=== PATIENT | male | born 1950 | race American Indian/Alaskan Native ===

== ENCOUNTER 2019-11-20 11:06 | Inpatient (IN) | payer MEDICARE ==
[2019-11-20] MEDS: traZODone 50 MG TAB PO SCH (22:35)
[2019-11-21 08:03] LABS: Basophils # (Auto) 0.1 K/mm3 (0.0-0.1); Basophils % (Auto) 1.1 % (0.0-1.8); Eosinophils # (Auto) 0.1 K/mm3 (0.0-0.4); Eosinophils % (Auto) 1.6 % (0.0-4.3); Hematocrit 33.6 % (35.5-45.6); Lymphocytes # (Auto) 1.1 K/mm3 (1.2-5.4); Lymphocytes % (Auto) 15.2 % (13.4-35.0); Mean Corpuscular HGB Conc 33 % (32-34); Mean Corpuscular Volume 84 fl (84-94); Monocytes # (Auto) 0.9 K/mm3 (0.0-0.8); Monocytes % (Auto) 12.6 % (0.0-7.3); Platelet Count 221 K/mm3 (140-440); Red Blood Count 4.01 M/mm3 (3.65-5.03); Red Cell Distribution Width 18.3 % (13.2-15.2)
[2019-11-21 08:12] LABS: Alanine Aminotransferase 15 units/L (7-56); Albumin 3.7 g/dL (3.9-5); BUN/Creatinine Ratio 32; Blood Urea Nitrogen 32 mg/dL (9-20); Calcium 9.4 mg/dL (8.4-10.2); Chol/HDL Ratio 2.38 %; HDL Cholesterol 55 mg/dL (40-59); Hemolysis Index 6; LDL Cholesterol,Direct 69 mg/dL (50-130)
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
[2019-11-21] MEDS ORDERED: ACETAMINOPHEN 650 MG PO PRN (10:08)
[2019-11-21] MEDS ORDERED: ARTIFICIAL TEARS OU SCH (10:15)
[2019-11-21] MEDS ORDERED: NON-FORMULARY EACH (Losartan 100 MG) PO SCH (10:15)
[2019-11-21] MEDS ORDERED: GUAIFENESIN 600 MG PO SCH (10:15)
[2019-11-21] MEDS ORDERED: NON-FORMULARY EACH (Apixaban 5 MG) PO SCH (10:15)
[2019-11-21] MEDS ORDERED: NON-FORMULARY EACH (Pantoprazole 40 MG) PO SCH (10:15)
[2019-11-21] MEDS: ACETAMINOPHEN 325 MG TAB PO PRN ×2 (10:59→21:50)
[2019-11-21] MEDS: MAGNESIUM OXIDE 400 MG TAB PO SCH (10:59)
[2019-11-21] MEDS: LOSARTAN 50 MG TAB PO SCH (11:00)
[2019-11-21] MEDS: NICOTINE 21 MG/24 HR PATCH TD SCH (12:31)
[2019-11-21] MEDS: FUROSEMIDE 20 MG TAB PO SCH ×2 (12:31→21:21)
[2019-11-21] MEDS: ASPIRIN EC 81 MG TAB PO SCH (12:31)
[2019-11-21] MEDS: HYPROMELLOSE 0.5% OPHTH SOLN 15 ML OU SCH ×4 (13:00→22:40)
--- NOTE | 2019-11-21 13:37 | Consultation ---
History of Present Illness - Reason for Consult Consult date: 11/21/19 Medical consult Requesting physician: IMANI FRANKLIN - History of Present Illness I have seen and examined the patient this morning in activity room Very pleasant 69-year-old male patient with significant past medical history of hypertension congestive heart failure atrial fibrillation COPD, GERD and spondylosis of the back with chronic back pain, anxiety and severe depression danger to self, was admitted to inpatient psych facility for further evaluation and management. Hospitalist service was requested for medical consult. Patient has multiple medical problems claims compliance with his medications The time of my evaluation patient complains of some depression, denies suicidal ideation or thoughts Denies hallucinations or delusions Patient denies chest pain or shortness of breath No other complaints Past History Past Medical History: atrial fib, heart failure, hypertension, hyperlipidemia Past Surgical History: No surgical history Social history: lives with family, smoking. denies: alcohol abuse, prescription drug abuse Family history: no significant family history Medications and Allergies Allergies Allergy/AdvReac Type Severity Reaction Status Date / Time lactose Allergy Unknown Verified 11/21/19 03:25 peanut Allergy Unknown Verified 11/20/19 14:04 tramadol Allergy Unknown Verified 11/21/19 03:25 Home Medications Medication Instructions Recorded Confirmed Last Taken Type Acetaminophen TAB 650 mg PO Q8H PRN 11/21/19 11/21/19 Unknown History Apixaban 5 mg PO BID 11/21/19 11/21/19 Unknown History Artificial Tears Drops 1%/0.3% 1 drop OU Q4H 11/21/19 11/21/19 Unknown History Aspirin [Adult Aspirin] 81 mg PO DAILY 11/21/19 11/21/19 Unknown History AtorvaSTATin 10 mg PO DAILY 11/21/19 11/21/19 Unknown History Budesonide-Formoterol 160-4.5 2 puff INHALATION BID 11/21/19 11/21/19 Unknown History Calcium Carbonate [Calcium 500 mg PO DAILY 11/21/19 11/21/19 Unknown History Carbonate 500MG TAB] Fluticasone/Vilanterol 1 puff INHALATION DAILY 11/21/19 11/21/19 Unknown History Furosemide [Lasix TAB] 20 mg PO BID 11/21/19 11/21/19 Unknown History Losartan 100 mg PO DAILY 11/21/19 11/21/19 Unknown History Magnesium Oxide 400 mg PO DAILY 11/21/19 11/21/19 Unknown History Pantoprazole 40 mg PO BID 11/21/19 11/21/19 Unknown History Sennosides [Senna] 8.6 mg PO BID 11/21/19 11/21/19 Unknown History Spironolactone [Aldactone] 50 mg PO QDAY 11/21/19 11/21/19 Unknown History guaiFENesin 600 mg PO Q12H 11/21/19 11/21/19 Unknown History Active Meds: Active Medications Acetaminophen (Tylenol) 650 mg PO Q8H PRN PRN Reason: Pain , Severe (7-10) Last Admin: 11/21/19 10:59 Dose: 650 mg Documented by: Apixaban (Eliquis) 5 mg PO Q12HR [facility] Artificial Tears (Isopto Tears 0.5%) 1 drops OU Q4H [facility] Aspirin (Halfprin Ec) 81 mg PO DAILY [facility] Last Admin: 11/21/19 12:31 Dose: 81 mg Documented by: Atorvastatin Calcium (Atorvastatin) 10 mg PO DAILY [facility] Last Admin: 11/21/19 12:31 Dose: 10 mg Documented by: Calcium Carbonate/Glycine (Oscal) 1,250 mg PO DAILY [facility] Furosemide (Lasix) 20 mg PO BID [facility] Last Admin: 11/21/19 12:31 Dose: 20 mg Documented by: Guaifenesin (Mucinex Er) 600 mg PO BID [facility] Losartan Potassium (Cozaar) 100 mg PO QDAY [facility] Magnesium Oxide (Mag-Ox) 400 mg PO QDAY [facility] Last Admin: 11/21/19 10:59 Dose: 400 mg Documented by: Melatonin (Melatonin) 5 mg PO QHS PRN PRN Reason: Sleep Miscellaneous Medication (Budesonide-Formoterol 160-4.5) 2 puff INHALATION BID [facility] Miscellaneous Medication (Fluticasone/Vilanterol) 1 puff INHALATION DAILY [facility] Nicotine (Habitrol) 21 mg TD QDAY [facility] Last Admin: 11/21/19 12:31 Dose: 21 mg Documented by: Pantoprazole Sodium (Protonix) 40 mg PO BID [facility] Risperidone (Risperdal) 0.25 mg PO BID [facility] Senna (Senokot) 8.6 mg PO BID [facility] Spironolactone (Aldactone) 50 mg PO QDAY [facility] Trazodone HCl (Desyrel) 50 mg PO QHS [facility] Last Admin: 11/20/19 22:35 Dose: Not Given Documented by: Review of Systems Constitutional: no weight loss, no weight gain Ears, nose, mouth and throat: no nasal congestion, no nasal discharge Cardiovascular: no chest pain, no orthopnea, no palpitations Respiratory: no cough, no shortness of breath Gastrointestinal: no abdominal pain, no nausea, no vomiting Genitourinary Male: no dysuria, no hematuria Musculoskeletal: no myalgias, no arthritis Integumentary: no rash, no lesions Neurological: no seizures, no syncope Psychiatric: suicidal ideation, depression, no anxiety Endocrine: no cold intolerance, no heat intolerance, no polydipsia, no polyuria Hematologic/Lymphatic: no easy bruising, no easy bleeding Allergic/Immunologic: no urticaria, no allergic rhinitis Exam - Constitutional Vitals: Temp Pulse Resp BP Pulse Ox 98.1 F 96 H 18 94/61 100 11/21/19 08:08 11/21/19 08:08 11/21/19 08:08 11/21/19 08:08 11/21/19 08:08 General appearance: Present: no acute distress, well-nourished - EENT Eyes: Present: PERRL, EOM intact - Neck Neck: Present: supple, normal ROM - Respiratory Respiratory effort: normal Respiratory: bilateral: diminished, negative: rales, rhonchi, wheezing - Cardiovascular Rhythm: regular Heart Sounds: Present: S1 & S2 - Extremities Extremities: no ischemia, No edema - Abdominal General gastrointestinal: Present: soft, non-tender, non-distended, normal bowel sounds - Integumentary Integumentary: Present: clear, warm - Musculoskeletal Musculoskeletal: strength equal bilaterally - Psychiatric Psychiatric: appropriate mood/affect, cooperative - Neurologic Neurologic: moves all extremities Results - Labs CBC & Chem 7: 11/21/19 07:10 11/21/19 07:10 Labs: Abnormal lab results 11/21/19 11/21/19 11/21/19 Range/Units 07:10 07:10 07:10 Hgb 11.0 L (11.8-15.2) gm/dl Hct 33.6 L (35.5-45.6) % MCH 27 L (28-32) pg RDW 18.3 H (13.2-15.2) % [place] % (Auto) 12.6 H (0.0-7.3) % Lymph # 1.1 L (1.2-5.4) K/mm3 [place] # 0.9 H (0.0-0.8) K/mm3 Sodium 136 L (137-145) mmol/L Chloride 97.2 L (98-107) mmol/L BUN 32 H (9-20) mg/dL Alkaline Phosphatase 138 H (35-129) units/L Albumin 3.7 L (3.9-5) g/dL TSH 8.400 H (0.270-4.200) mlU/mL Assessment and Plan --Hypertension; moderate control Continue current antihypertensives and PRN medications --History of atrial fibrillation; Rate controlled, continue his home medication --Chronic anticoagulation; with Eliquis Closely monitor --History of congestive heart failure[unknown ejection fraction] Continue anti-failure medications, --Dyslipidemia; statin --GERD; continue Protonix --Hypothyroidism; Check thyroid panel, start low-dose Synthroid --DVT prophylaxis; patient on Eliquis --Major depressive disorder; Management per psych Closely monitor and adjust the management Thank you for this consultation We will follow the patient along with you as needed Plan of care reviewed with the patient and his nurse
[2019-11-21] MEDS: guaiFENesin ER 600 MG TAB PO SCH ×2 (16:23→21:22)
[2019-11-21] MEDS: CALCIUM CARBONATE 1250 MG TAB PO SCH (16:23)
[2019-11-21] MEDS: APIXABAN 5 MG TAB PO SCH ×2 (16:24→21:22)
[2019-11-21] MEDS: SPIRONOLACTONE 50 MG TAB PO SCH (16:24)
[2019-11-21] MEDS: SENNOSIDES 8.6 MG TAB PO SCH (21:21)
[2019-11-21] MEDS: traZODone 50 MG TAB PO SCH (21:21)
[2019-11-21] MEDS: risperiDONE 0.25 MG TAB PO SCH (21:21)
[2019-11-21] MEDS: PANTOPRAZOLE 40 MG TAB PO SCH (21:21)
[2019-11-21] MEDS ORDERED: NON-FORMULARY EACH (Budesonide-Formoterol 160-4.5 2 PUFF) INHALATION SCH (22:00)
[2019-11-21] MEDS ORDERED: ARFORMOTEROL 15 MCG/2 ML NEBU IH ONE (22:00)
[2019-11-21] MEDS ORDERED: SENNOSIDES 8.6 MG PO SCH (22:00)
[2019-11-22] MEDS: HYPROMELLOSE 0.5% OPHTH SOLN 15 ML OU SCH ×6 (03:04→22:39)
[2019-11-22] MEDS: LEVOTHYROXINE 50 MCG TAB PO SCH (05:28)
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
[2019-11-22] MEDS ORDERED: VILANTEROL INHALATION SCH (10:00)
[2019-11-22] MEDS ORDERED: FLUTICASONE INHALATION SCH (10:00)
[2019-11-22] MEDS ORDERED: MAGNESIUM OXIDE 400 MG PO SCH (10:00)
[2019-11-22] MEDS: LOSARTAN 50 MG TAB PO SCH (10:47)
[2019-11-22] MEDS: guaiFENesin ER 600 MG TAB PO SCH ×2 (10:47→21:24)
[2019-11-22] MEDS: ASPIRIN EC 81 MG TAB PO SCH (10:47)
[2019-11-22] MEDS: NICOTINE 21 MG/24 HR PATCH TD SCH ×2 (10:48→10:55)
[2019-11-22] MEDS: FUROSEMIDE 20 MG TAB PO SCH ×2 (10:49→21:25)
[2019-11-22] MEDS: APIXABAN 5 MG TAB PO SCH ×2 (10:49→21:24)
[2019-11-22] MEDS: MAGNESIUM OXIDE 400 MG TAB PO SCH (10:49)
[2019-11-22] MEDS: CALCIUM CARBONATE 1250 MG TAB PO SCH (10:49)
[2019-11-22] MEDS: SPIRONOLACTONE 50 MG TAB PO SCH (10:49)
[2019-11-22] MEDS: SENNOSIDES 8.6 MG TAB PO SCH ×2 (10:49→21:24)
[2019-11-22] MEDS: risperiDONE 0.25 MG TAB PO SCH ×2 (10:50→21:25)
[2019-11-22] MEDS: PANTOPRAZOLE 40 MG TAB PO SCH ×2 (11:05→21:25)
[2019-11-22] MEDS: SERTRALINE 25 MG TAB PO SCH (11:05)
[2019-11-22] MEDS: ACETAMINOPHEN 325 MG TAB PO PRN ×2 (11:39→21:34)
[2019-11-22] MEDS: traZODone 50 MG TAB PO SCH (21:24)
[2019-11-23] MEDS: ACETAMINOPHEN 325 MG TAB PO PRN (03:06)
[2019-11-23] MEDS: HYPROMELLOSE 0.5% OPHTH SOLN 15 ML OU SCH ×6 (03:06→23:40)
[2019-11-23] MEDS: BUDESONIDE 0.5 MG/2 ML NEBU IH SCH ×6 (04:25→22:51)
[2019-11-23] MEDS: ARFORMOTEROL 15 MCG/2 ML NEBU IH SCH ×6 (04:25→22:52)
[2019-11-23] MEDS: LEVOTHYROXINE 50 MCG TAB PO SCH (05:41)
--- NOTE | 2019-11-23 07:27 | Progress Note ---
Subjective Date of service: 11/23/19 Principal diagnosis: Major Depressive Disorder Subjective Comment: Psych Nurse: Pt remains alert and oriented to person place and situation; complained of pain earlier in the shift and administered a dose of Tylenol 650mg PO only to later confirm the effectiveness of the pain pill as the pain threshold dropped from 5 to 0. Pt remain ambulatory with steady gait and was non-compliant with medications. Pt refused all his day time medications saying "I cannot take 15 pills". Pt participated actively in all group activities and denied any suicide or homicidal thoughts as well as denied any intent to hurt self or others. Pt will continued to be monitored for safety every 15 minutes. PSYCH PROGRESS HPI Patient seen this a.m. reports is been doing pretty good this morning compared to yesterday that somehow he just felt worried about something but was not specific. Patient reports sleeping well, denies any suicidal or homicidal ideation states that he loves living. Denies any auditory visual hallucinations, patient reports noncompliance to medications states because the medication was too much that he normally only takes 3 medication but now feels like he is taking 15 pills. Reason for continuing inpatient hospitalization: This patient was admitted due to suicidal ideation with plan asking for gun because he wanted to shoot h imself, patient is denying suicidal ideation but patient has been noncompliant with taking oral medications, and concern patient hiding symptoms for quick discharge. Will make meds adjustment and recommend continued observation of patients mood and affect. REVIEW OF SYSTEMS Constitutional: Negative for weight loss ENT: Negative for stridor Respiratory: Negative for cough or hemoptysis All other systems reviewed and are negative MENTAL STATUS EXAMINATION General Appearance and Behavior: Age appropriate, fair hygiene, wearing appropriate clothes, good eye contact, cooperative polite with questioning. Cooperation: Participating/engaged Psychomotor Behavior: unremarkable and within normal limits Mood: feel good Affect and affective range: incongruent with mood Thought Process: Fluent/Logical Thought Content: Within reality Speech: Normal volume, Regular rate and rhythm Intellectual Functioning: Average Suicidal Ideation: denies Homicidal Ideation: Denies HI Impulse Control: Unimpaired Insight and Judgment: Normal insight and judgment Memory: Normal Attention: Normal Orientation: Alert, oriented, anxious. Assessment and Plan - Psychiatric problem (1) MDD (major depressive disorder), recurrent episode, severe Current Visit: Yes Status: Acute Check t4 and T3 levels, TSH very high Patient complained about too much medications: Medication reviewed with prescriptions home meds, and was able to discontinue 5 medications. Patient will be admitted for inpatient psychiatric evaluation, medication adjustment and close monitoring The patient's behavior, mood, sleep and appetite will be closely monitored. Patient will be enrolled in individual and group therapeutic sessions and encouraged to attend. Patient will be provided with a safe and structured environment. Patient's physical health needs will be addressed by the Hospitalist. Hospitalist Consulted Labs including CBC, CMP, Lipid profile and Hemoglobin A1C ordered Social Assessment will be completed and the Liquor Blender will work with patient and family to ensure a suitable and safe disposition Medication adjustment will be made as clinically indicated Usual Wellness Nondenominational/Preservation: - Start Trazodone 50 mg po QHS & 50 mg po QHS PRN between 10 PM & 2 AM for insomnia - Start Melatonin 5 mg po QHS to promote circadian rhythm - Start [place]-3 for brain health, reduce impulsivity, and as adjunctive treatment for mood disorder, continue upon discharge given overall benefits. - Start B1 prophylaxis with 200 mg po for 5 days The patient agreed on the treatment plan, understood the risk, benefit, alternative treatment, potential consequence of no treatment, and gave informed consent. Initial Certification This is an acknowledgement statement that Demetrio Burnett is a 56 year old F who requires inpatient psychiatric admission for treatment which could reasonably be expected to improve the patient's condition for Estimated period of time patient will need to remain in the hospital: [5] Medications and Allergies Allergies Allergy/AdvReac Type Severity Reaction Status Date / Time lactose Allergy Unknown Verified 11/21/19 03:25 peanut Allergy Unknown Verified 11/20/19 14:04 tramadol Allergy Unknown Verified 11/21/19 03:25 Home Medications Medication Instructions Recorded Confirmed Last Taken Type Acetaminophen TAB 650 mg PO Q8H PRN 11/21/19 11/21/19 Unknown History Apixaban 5 mg PO BID 11/21/19 11/21/19 Unknown History Artificial Tears Drops 1%/0.3% 1 drop OU Q4H 11/21/19 11/21/19 Unknown History Aspirin [Adult Aspirin] 81 mg PO DAILY 11/21/19 11/21/19 Unknown History AtorvaSTATin 10 mg PO DAILY 11/21/19 11/21/19 Unknown History Budesonide-Formoterol 160-4.5 2 puff INHALATION BID 11/21/19 11/21/19 Unknown History Calcium Carbonate [Calcium 500 mg PO DAILY 11/21/19 11/21/19 Unknown History Carbonate 500MG TAB] Fluticasone/Vilanterol 1 puff INHALATION DAILY 11/21/19 11/21/19 Unknown History Furosemide [Lasix TAB] 20 mg PO BID 11/21/19 11/21/19 Unknown History Losartan 100 mg PO DAILY 11/21/19 11/21/19 Unknown History Magnesium Oxide 400 mg PO DAILY 11/21/19 11/21/19 Unknown History Pantoprazole 40 mg PO BID 11/21/19 11/21/19 Unknown History Sennosides [Senna] 8.6 mg PO BID 11/21/19 11/21/19 Unknown History Spironolactone [Aldactone] 50 mg PO QDAY 11/21/19 11/21/19 Unknown History guaiFENesin 600 mg PO Q12H 11/21/19 11/21/19 Unknown History Active Meds: Active Medications Acetaminophen (Tylenol) 650 mg PO Q8H PRN PRN Reason: Pain , Severe (7-10) Last Admin: 11/23/19 03:06 Dose: 650 mg Documented by: Apixaban (Eliquis) 5 mg PO Q12HR [facility] Last Admin: 11/22/19 21:24 Dose: 5 mg Documented by: Arformoterol Tartrate (Brovana Nebu) 15 mcg IH Q12HRT [facility] Last Admin: 11/23/19 04:25 Dose: Not Given Documented by: Artificial Tears (Isopto Tears 0.5%) 1 drops OU Q4H [facility] Last Admin: 11/23/19 06:27 Dose: 1 drops Documented by: Aspirin (Halfprin Ec) 81 mg PO DAILY [facility] Last Admin: 11/22/19 10:47 Dose: Not Given Documented by: Atorvastatin Calcium (Atorvastatin) 10 mg PO DAILY [facility] Last Admin: 11/22/19 10:49 Dose: Not Given Documented by: Budesonide (Pulmicort) 1 mg IH Q12HRT [facility] Last Admin: 11/23/19 04:25 Dose: Not Given Documented by: Calcium Carbonate/Glycine (Oscal) 1,250 mg PO DAILY [facility] Last Admin: 11/22/19 10:49 Dose: 1,250 mg Documented by: Furosemide (Lasix) 20 mg PO BID [facility] Last Admin: 11/22/19 21:25 Dose: 20 mg Documented by: Guaifenesin (Mucinex Er) 600 mg PO BID [facility] Last Admin: 11/22/19 21:24 Dose: 600 mg Documented by: Levothyroxine Sodium (Synthroid) 50 mcg PO DAILY@0600 [facility] Last Admin: 11/23/19 05:41 Dose: 50 mcg Documented by: Losartan Potassium (Cozaar) 100 mg PO QDAY [facility] Last Admin: 11/22/19 10:47 Dose: Not Given Documented by: Magnesium Oxide (Mag-Ox) 400 mg PO QDAY [facility] Last Admin: 11/22/19 10:49 Dose: Not Given Documented by: Melatonin (Melatonin) 5 mg PO QHS PRN PRN Reason: Sleep Nicotine (Habitrol) 21 mg TD QDAY [facility] Last Admin: 11/22/19 10:55 Dose: 21 mg Documented by: Pantoprazole Sodium (Protonix) 40 mg PO BID [facility] Last Admin: 11/22/19 21:25 Dose: 40 mg Documented by: Risperidone (Risperdal) 0.25 mg PO BID [facility] Last Admin: 11/22/19 21:25 Dose: 0.25 mg Documented by: Senna (Senokot) 8.6 mg PO BID [facility] Last Admin: 11/22/19 21:24 Dose: 8.6 mg Documented by: Sertraline HCl (Zoloft) 25 mg PO QDAY [facility] Last Admin: 11/22/19 11:05 Dose: Not Given Documented by: Spironolactone (Aldactone) 50 mg PO QDAY [facility] Last Admin: 11/22/19 10:49 Dose: Not Given Documented by: Trazodone HCl (Desyrel) 50 mg PO QHS [facility] Last Admin: 11/22/19 21:24 Dose: 50 mg Documented by: Results - Results Labs/Vitals: Laboratory Last Values WBC 7.0 K/mm3 (4.5-11.0) 11/21/19 07:10 RBC 4.01 M/mm3 (3.65-5.03) 11/21/19 07:10 Hgb 11.0 gm/dl (11.8-15.2) L 11/21/19 07:10 Hct 33.6 % (35.5-45.6) L 11/21/19 07:10 MCV 84 fl (84-94) 11/21/19 07:10 MCH 27 pg (28-32) L 11/21/19 07:10 MCHC 33 % (32-34) 11/21/19 07:10 RDW 18.3 % (13.2-15.2) H 11/21/19 07:10 Plt Count 221 K/mm3 (140-440) 11/21/19 07:10 Lymph % (Auto) 15.2 % (13.4-35.0) 11/21/19 07:10 [place] % (Auto) 12.6 % (0.0-7.3) H 11/21/19 07:10 Eos % (Auto) 1.6 % (0.0-4.3) 11/21/19 07:10 Baso % (Auto) 1.1 % (0.0-1.8) 11/21/19 07:10 Lymph # 1.1 K/mm3 (1.2-5.4) L 11/21/19 07:10 [place] # 0.9 K/mm3 (0.0-0.8) H 11/21/19 07:10 Eos # 0.1 K/mm3 (0.0-0.4) 11/21/19 07:10 Baso # 0.1 K/mm3 (0.0-0.1) 11/21/19 07:10 Seg Neutrophils % 69.5 % (40.0-70.0) 11/21/19 07:10 Seg Neutrophils # 4.9 K/mm3 (1.8-7.7) 11/21/19 07:10 Sodium 136 mmol/L (137-145) L 11/21/19 07:10 Potassium 4.9 mmol/L (3.6-5.0) 11/21/19 07:10 Chloride 97.2 mmol/L (98-107) L 11/21/19 07:10 Carbon Dioxide 29 mmol/L (22-30) 11/21/19 07:10 Anion Gap 15 mmol/L 11/21/19 07:10 BUN 32 mg/dL (9-20) H 11/21/19 07:10 Creatinine 1.0 mg/dL (0.8-1.5) 11/21/19 07:10 Estimated GFR > 60 ml/min 11/21/19 07:10 BUN/Creatinine Ratio 32 % 11/21/19 07:10 Glucose 87 mg/dL (75-100) 11/21/19 07:10 POC Glucose 88 (70-105) 11/21/19 06:34 Hemoglobin A1c 4.7 % (4-6) 11/21/19 07:10 Calcium 9.4 mg/dL (8.4-10.2) 11/21/19 07:10 Total Bilirubin 0.40 mg/dL (0.1-1.2) 11/21/19 07:10 AST 25 units/L (5-40) 11/21/19 07:10 ALT 15 units/L (7-56) 11/21/19 07:10 Alkaline Phosphatase 138 units/L (35-129) H 11/21/19 07:10 Total Protein 6.9 g/dL (6.3-8.2) 11/21/19 07:10 Albumin 3.7 g/dL (3.9-5) L 11/21/19 07:10 Albumin/Globulin Ratio 1.2 % 11/21/19 07:10 Triglycerides 108 mg/dL (2-149) 11/21/19 07:10 Cholesterol 131 mg/dL (50-199) 11/21/19 07:10 LDL Cholesterol Direct 69 mg/dL (50-130) 11/21/19 07:10 HDL Cholesterol 55 mg/dL (40-59) 11/21/19 07:10 Cholesterol/HDL Ratio 2.38 % 11/21/19 07:10 TSH 8.400 mlU/mL (0.270-4.200) H 11/21/19 07:10 Free T4 0.99 ng/dL (0.76-1.46) 11/21/19 07:10 Last Vital Signs Temp 98.0 F 11/22/19 22:00 Pulse 68 11/22/19 22:00 Resp 18 11/22/19 22:00 BP 109/65 11/22/19 22:00 Pulse Ox 100 11/22/19 22:00
[2019-11-23] MEDS: SPIRONOLACTONE 50 MG TAB PO SCH (10:06)
[2019-11-23] MEDS: LOSARTAN 50 MG TAB PO SCH (10:06)
[2019-11-23] MEDS: APIXABAN 5 MG TAB PO SCH ×2 (10:06→22:20)
[2019-11-23] MEDS: FUROSEMIDE 20 MG TAB PO SCH ×2 (10:07→22:21)
[2019-11-23] MEDS: ASPIRIN EC 81 MG TAB PO SCH (10:11)
[2019-11-23] MEDS: SERTRALINE 25 MG TAB PO SCH (10:11)
[2019-11-23] MEDS: NICOTINE 21 MG/24 HR PATCH TD SCH (10:18)
[2019-11-23] MEDS: risperiDONE 0.25 MG TAB PO SCH ×2 (11:26→22:21)
[2019-11-24] MEDS: ACETAMINOPHEN 325 MG TAB PO PRN ×3 (01:36→22:12)
[2019-11-24] MEDS: MELATONIN 5 MG TAB PO PRN (01:37)
[2019-11-24] MEDS: HYPROMELLOSE 0.5% OPHTH SOLN 15 ML OU SCH ×6 (03:00→23:20)
[2019-11-24] MEDS: LEVOTHYROXINE 50 MCG TAB PO SCH (05:35)
--- NOTE | 2019-11-24 08:57 | Progress Note ---
Subjective Date of service: 11/24/19 Principal diagnosis: Major Depressive Disorder Subjective Comment: The patient's medical record was reviewed and the patient's progress was discussed with the nursing staff. The patient noted with restless night. He slept 4.5 hours. Delusional thoughts observed as the patient reports this a.m that he was stunned with taser tonight. The patient is non-compliant with medication. During my interview with the patient, he is in the dayroom. He is a/o x 3. The patient appears tired. He has his head lying down on the table. The patient says his mood is "okay." He says, "I'm just tired." The patient says, "I slept pretty good once I finally got to sleep." He denies SI/HI or hallucinations of any kind. Reason for continued inpatient treatment: The patient is improving, but shows signs of underlying depression. The patient also has some periods of delusions. He also has disturbed sleep pattern. REVIEW OF SYSTEMS Constitutional: Negative for weight loss ENT: Negative for stridor Respiratory: Negative for cough or hemoptysis All other systems reviewed and are negative MENTAL STATUS EXAMINATION General Appearance: Dressed appropriately. Fair eye contact Behavior: Calm and cooperative Speech: Normal rate and pace Mood: "okay" Affect: Congruent with stated mood Thought Process: Goal directed Thought Content Suicidal Ideation: Denies Homicidal Ideation: Denies Hallucinations: Denies Delusions: None elicited Insight/Judgment: Limited Memory/Cognition: Limited Assessment and Plan Major Depressive Disorder Treatment Plan Patient will be admitted for inpatient psychiatric evaluation, medication adjustment and close monitoring The patient's behavior, mood, sleep and appetite will be closely monitored. Patient will be enrolled in individual and group therapeutic sessions and encouraged to attend. Patient will be provided with a safe and structured environment. Patient's physical health needs will be addressed by the Hospitalist. Hospitalist Consulted Labs including CBC, CMP, Lipid profile and Hemoglobin A1C ordered Social Assessment will be completed and the Interventional Nurse will work with patient and family to ensure a suitable and safe disposition Medication adjustment will be made as clinically indicated Usual Wellness Buddhism/Preservation: - Increased Risperidone 1mg po po BID The patient agreed on the treatment plan, understood the risk, benefit, alternative treatment, potential consequence of no treatment, and gave informed consent. Estimated period of time patient will need to remain in the hospital: [4] Outpatient treatment upon discharge Medications and Allergies Allergies Allergy/AdvReac Type Severity Reaction Status Date / Time lactose Allergy Unknown Verified 11/21/19 03:25 peanut Allergy Unknown Verified 11/20/19 14:04 tramadol Allergy Unknown Verified 11/21/19 03:25 Home Medications Medication Instructions Recorded Confirmed Last Taken Type Acetaminophen TAB 650 mg PO Q8H PRN 11/21/19 11/21/19 Unknown History Apixaban 5 mg PO BID 11/21/19 11/21/19 Unknown History Artificial Tears Drops 1%/0.3% 1 drop OU Q4H 11/21/19 11/21/19 Unknown History Aspirin [Adult Aspirin] 81 mg PO DAILY 11/21/19 11/21/19 Unknown History AtorvaSTATin 10 mg PO DAILY 11/21/19 11/21/19 Unknown History Budesonide-Formoterol 160-4.5 2 puff INHALATION BID 11/21/19 11/21/19 Unknown History Calcium Carbonate [Calcium 500 mg PO DAILY 11/21/19 11/21/19 Unknown History Carbonate 500MG TAB] Fluticasone/Vilanterol 1 puff INHALATION DAILY 11/21/19 11/21/19 Unknown History Furosemide [Lasix TAB] 20 mg PO BID 11/21/19 11/21/19 Unknown History Losartan 100 mg PO DAILY 11/21/19 11/21/19 Unknown History Magnesium Oxide 400 mg PO DAILY 11/21/19 11/21/19 Unknown History Pantoprazole 40 mg PO BID 11/21/19 11/21/19 Unknown History Sennosides [Senna] 8.6 mg PO BID 11/21/19 11/21/19 Unknown History Spironolactone [Aldactone] 50 mg PO QDAY 11/21/19 11/21/19 Unknown History guaiFENesin 600 mg PO Q12H 11/21/19 11/21/19 Unknown History Active Meds: Active Medications Acetaminophen (Tylenol) 650 mg PO Q8H PRN PRN Reason: Pain , Severe (7-10) Last Admin: 11/24/19 01:36 Dose: 650 mg Documented by: Apixaban (Eliquis) 5 mg PO Q12HR [facility] Last Admin: 11/23/19 22:20 Dose: Not Given Documented by: Arformoterol Tartrate (Brovana Nebu) 15 mcg IH Q12HRT [facility] Last Admin: 11/23/19 22:52 Dose: 15 mcg Documented by: Artificial Tears (Isopto Tears 0.5%) 1 drops OU Q4H [facility] Last Admin: 11/24/19 07:18 Dose: 1 drops Documented by: Aspirin (Halfprin Ec) 81 mg PO DAILY [facility] Last Admin: 11/23/19 10:11 Dose: 81 mg Documented by: Atorvastatin Calcium (Atorvastatin) 10 mg PO DAILY [facility] Last Admin: 11/23/19 10:05 Dose: 10 mg Documented by: Budesonide (Pulmicort) 0.5 mg IH Q12HRT [facility] Furosemide (Lasix) 20 mg PO BID [facility] Last Admin: 11/23/19 22:21 Dose: Not Given Documented by: Levothyroxine Sodium (Synthroid) 50 mcg PO DAILY@0600 [facility] Last Admin: 11/24/19 05:35 Dose: 50 mcg Documented by: Losartan Potassium (Cozaar) 100 mg PO QDAY [facility] Last Admin: 11/23/19 10:06 Dose: 100 mg Documented by: Melatonin (Melatonin) 5 mg PO QHS PRN PRN Reason: Sleep Last Admin: 11/24/19 01:37 Dose: 5 mg Documented by: Nicotine (Habitrol) 21 mg TD QDAY [facility] Last Admin: 11/23/19 10:18 Dose: 21 mg Documented by: Risperidone (Risperdal) 0.5 mg PO BID [facility] Last Admin: 11/23/19 22:21 Dose: Not Given Documented by: Sertraline HCl (Zoloft) 25 mg PO QDAY [facility] Last Admin: 11/23/19 10:11 Dose: 25 mg Documented by: Spironolactone (Aldactone) 50 mg PO QDAY [facility] Last Admin: 11/23/19 10:06 Dose: 50 mg Documented by: Results - Results Labs/Vitals: Laboratory Last Values WBC 7.0 K/mm3 (4.5-11.0) 11/21/19 07:10 RBC 4.01 M/mm3 (3.65-5.03) 11/21/19 07:10 Hgb 11.0 gm/dl (11.8-15.2) L 11/21/19 07:10 Hct 33.6 % (35.5-45.6) L 11/21/19 07:10 MCV 84 fl (84-94) 11/21/19 07:10 MCH 27 pg (28-32) L 11/21/19 07:10 MCHC 33 % (32-34) 11/21/19 07:10 RDW 18.3 % (13.2-15.2) H 11/21/19 07:10 Plt Count 221 K/mm3 (140-440) 11/21/19 07:10 Lymph % (Auto) 15.2 % (13.4-35.0) 11/21/19 07:10 [place] % (Auto) 12.6 % (0.0-7.3) H 11/21/19 07:10 Eos % (Auto) 1.6 % (0.0-4.3) 11/21/19 07:10 Baso % (Auto) 1.1 % (0.0-1.8) 11/21/19 07:10 Lymph # 1.1 K/mm3 (1.2-5.4) L 11/21/19 07:10 [place] # 0.9 K/mm3 (0.0-0.8) H 11/21/19 07:10 Eos # 0.1 K/mm3 (0.0-0.4) 11/21/19 07:10 Baso # 0.1 K/mm3 (0.0-0.1) 11/21/19 07:10 Seg Neutrophils % 69.5 % (40.0-70.0) 11/21/19 07:10 Seg Neutrophils # 4.9 K/mm3 (1.8-7.7) 11/21/19 07:10 Sodium 136 mmol/L (137-145) L 11/21/19 07:10 Potassium 4.9 mmol/L (3.6-5.0) 11/21/19 07:10 Chloride 97.2 mmol/L (98-107) L 11/21/19 07:10 Carbon Dioxide 29 mmol/L (22-30) 11/21/19 07:10 Anion Gap 15 mmol/L 11/21/19 07:10 BUN 32 mg/dL (9-20) H 11/21/19 07:10 Creatinine 1.0 mg/dL (0.8-1.5) 11/21/19 07:10 Estimated GFR > 60 ml/min 11/21/19 07:10 BUN/Creatinine Ratio 32 % 11/21/19 07:10 Glucose 87 mg/dL (75-100) 11/21/19 07:10 POC Glucose 88 (70-105) 11/21/19 06:34 Hemoglobin A1c 4.7 % (4-6) 11/21/19 07:10 Calcium 9.4 mg/dL (8.4-10.2) 11/21/19 07:10 Magnesium 2.30 mg/dL (1.7-2.3) 11/23/19 12:11 Total Bilirubin 0.40 mg/dL (0.1-1.2) 11/21/19 07:10 AST 25 units/L (5-40) 11/21/19 07:10 ALT 15 units/L (7-56) 11/21/19 07:10 Alkaline Phosphatase 138 units/L (35-129) H 11/21/19 07:10 Total Protein 6.9 g/dL (6.3-8.2) 11/21/19 07:10 Albumin 3.7 g/dL (3.9-5) L 11/21/19 07:10 Albumin/Globulin Ratio 1.2 % 11/21/19 07:10 Triglycerides 108 mg/dL (2-149) 11/21/19 07:10 Cholesterol 131 mg/dL (50-199) 11/21/19 07:10 LDL Cholesterol Direct 69 mg/dL (50-130) 11/21/19 07:10 HDL Cholesterol 55 mg/dL (40-59) 11/21/19 07:10 Cholesterol/HDL Ratio 2.38 % 11/21/19 07:10 TSH 8.400 mlU/mL (0.270-4.200) H 11/21/19 07:10 Free T4 0.98 ng/dL (0.76-1.46) 11/23/19 12:11 Last Vital Signs Temp 97.5 F L 11/23/19 20:09 Pulse 71 11/23/19 22:52 Resp 14 11/23/19 22:52 BP 103/50 11/23/19 20:09 Pulse Ox 98 11/23/19 20:09
[2019-11-24] MEDS: APIXABAN 5 MG TAB PO SCH ×2 (09:46→21:16)
[2019-11-24] MEDS: SPIRONOLACTONE 50 MG TAB PO SCH (09:46)
[2019-11-24] MEDS: NICOTINE 21 MG/24 HR PATCH TD SCH (09:47)
[2019-11-24] MEDS: FUROSEMIDE 20 MG TAB PO SCH ×2 (09:47→21:16)
[2019-11-24] MEDS: ASPIRIN EC 81 MG TAB PO SCH (09:47)
[2019-11-24] MEDS: SERTRALINE 25 MG TAB PO SCH (09:47)
[2019-11-24] MEDS: LOSARTAN 50 MG TAB PO SCH (10:00)
[2019-11-24] MEDS: risperiDONE 1 MG TAB PO SCH ×2 (10:03→21:16)
[2019-11-24] MEDS: BUDESONIDE 0.5 MG/2 ML NEBU IH SCH ×3 (11:12→22:05)
[2019-11-24] MEDS: ARFORMOTEROL 15 MCG/2 ML NEBU IH SCH ×2 (11:13→22:05)
[2019-11-25] MEDS: HYPROMELLOSE 0.5% OPHTH SOLN 15 ML OU SCH ×6 (04:07→22:59)
[2019-11-25] MEDS: LEVOTHYROXINE 50 MCG TAB PO SCH (06:12)
--- NOTE | 2019-11-25 07:47 | Progress Note ---
Subjective Date of service: 11/25/19 Principal diagnosis: Major Depressive Disorder Subjective Comment: The patient's medical record was reviewed and the patient's progress was discussed with the nursing staff. The nurse note states the patient sitting quietly and withdrawn to self in the activity room. The patient denies pain, SI or HI. During my interview with the patient, he is sitting up in the bed, awake. He is a/o x 2, he could not remember the day of month. He appears withdrawn. He is calm and cooperative. He says his mood is "alright." The patient says he "slept real good." He denies suicidal or homicidal thoughts. The patient denies hallucinations of any kind. Reason for continued inpatient treatment: The patient is improving, but shows signs of underlying depression. The patient also has had some periods of delusions. REVIEW OF SYSTEMS Constitutional: Negative for weight loss ENT: Negative for stridor Respiratory: Negative for cough or hemoptysis All other systems reviewed and are negative MENTAL STATUS EXAMINATION General Appearance: Dressed appropriately. Fair eye contact Behavior: Calm and cooperative Speech: Normal rate and pace Mood: "alright" Affect: Congruent with stated mood Thought Process: Goal directed Thought Content Suicidal Ideation: Denies Homicidal Ideation: Denies Hallucinations: Denies Delusions: None elicited Insight/Judgment: Limited Memory/Cognition: Limited Assessment and Plan Major Depressive Disorder Treatment Plan Patient will be admitted for inpatient psychiatric evaluation, medication adjustment and close monitoring The patient's behavior, mood, sleep and appetite will be closely monitored. Patient will be enrolled in individual and group therapeutic sessions and encouraged to attend. Patient will be provided with a safe and structured environment. Patient's physical health needs will be addressed by the Hospitalist. Hospitalist Consulted Labs including CBC, CMP, Lipid profile and Hemoglobin A1C ordered Social Assessment will be completed and the Service Center Representative will work with patient and family to ensure a suitable and safe disposition Medication adjustment will be made as clinically indicated Usual Wellness [employer]/Preservation: - Start Depakote DR 125mg po BID to improve mood The patient agreed on the treatment plan, understood the risk, benefit, alternative treatment, potential consequence of no treatment, and gave informed consent. Estimated period of time patient will need to remain in the hospital: [4] Outpatient treatment upon discharge Medications and Allergies Allergies Allergy/AdvReac Type Severity Reaction Status Date / Time lactose Allergy Unknown Verified 11/21/19 03:25 peanut Allergy Unknown Verified 11/20/19 14:04 tramadol Allergy Unknown Verified 11/21/19 03:25 Home Medications Medication Instructions Recorded Confirmed Last Taken Type Acetaminophen TAB 650 mg PO Q8H PRN 11/21/19 11/21/19 Unknown History Apixaban 5 mg PO BID 11/21/19 11/21/19 Unknown History Artificial Tears Drops 1%/0.3% 1 drop OU Q4H 11/21/19 11/21/19 Unknown History Aspirin [Adult Aspirin] 81 mg PO DAILY 11/21/19 11/21/19 Unknown History AtorvaSTATin 10 mg PO DAILY 11/21/19 11/21/19 Unknown History Budesonide-Formoterol 160-4.5 2 puff INHALATION BID 11/21/19 11/21/19 Unknown History Calcium Carbonate [Calcium 500 mg PO DAILY 11/21/19 11/21/19 Unknown History Carbonate 500MG TAB] Fluticasone/Vilanterol 1 puff INHALATION DAILY 11/21/19 11/21/19 Unknown History Furosemide [Lasix TAB] 20 mg PO BID 11/21/19 11/21/19 Unknown History Losartan 100 mg PO DAILY 11/21/19 11/21/19 Unknown History Magnesium Oxide 400 mg PO DAILY 11/21/19 11/21/19 Unknown History Pantoprazole 40 mg PO BID 11/21/19 11/21/19 Unknown History Sennosides [Senna] 8.6 mg PO BID 11/21/19 11/21/19 Unknown History Spironolactone [Aldactone] 50 mg PO QDAY 11/21/19 11/21/19 Unknown History guaiFENesin 600 mg PO Q12H 11/21/19 11/21/19 Unknown History Active Meds: Active Medications Acetaminophen (Tylenol) 650 mg PO Q8H PRN PRN Reason: Pain , Severe (7-10) Last Admin: 11/24/19 22:12 Dose: 650 mg Documented by: Apixaban (Eliquis) 5 mg PO Q12HR [facility] Last Admin: 11/24/19 21:16 Dose: 5 mg Documented by: Arformoterol Tartrate (Brovana Nebu) 15 mcg IH Q12HRT [facility] Last Admin: 11/24/19 22:05 Dose: 15 mcg Documented by: Artificial Tears (Isopto Tears 0.5%) 1 drops OU Q4H [facility] Last Admin: 11/25/19 06:11 Dose: 1 drops Documented by: Aspirin (Halfprin Ec) 81 mg PO DAILY [facility] Last Admin: 11/24/19 09:47 Dose: 81 mg Documented by: Atorvastatin Calcium (Atorvastatin) 10 mg PO DAILY [facility] Last Admin: 11/24/19 09:47 Dose: 10 mg Documented by: Budesonide (Pulmicort) 0.5 mg IH Q12HRT [facility] Last Admin: 11/24/19 22:05 Dose: 0.5 mg Documented by: Furosemide (Lasix) 20 mg PO BID [facility] Last Admin: 11/24/19 21:16 Dose: 20 mg Documented by: Levothyroxine Sodium (Synthroid) 50 mcg PO DAILY@0600 [facility] Last Admin: 11/25/19 06:12 Dose: 50 mcg Documented by: Losartan Potassium (Cozaar) 100 mg PO QDAY [facility] Last Admin: 11/24/19 10:00 Dose: Not Given Documented by: Melatonin (Melatonin) 5 mg PO QHS PRN PRN Reason: Sleep Last Admin: 11/24/19 01:37 Dose: 5 mg Documented by: Nicotine (Habitrol) 21 mg TD QDAY [facility] Last Admin: 11/24/19 09:47 Dose: 21 mg Documented by: Risperidone (Risperdal) 1 mg PO BID [facility] Last Admin: 11/24/19 21:16 Dose: 1 mg Documented by: Sertraline HCl (Zoloft) 25 mg PO QDAY [facility] Last Admin: 11/24/19 09:47 Dose: 25 mg Documented by: Spironolactone (Aldactone) 50 mg PO QDAY [facility] Last Admin: 11/24/19 09:46 Dose: 50 mg Documented by: Results - Results Labs/Vitals: Laboratory Last Values WBC 7.0 K/mm3 (4.5-11.0) 11/21/19 07:10 RBC 4.01 M/mm3 (3.65-5.03) 11/21/19 07:10 Hgb 11.0 gm/dl (11.8-15.2) L 11/21/19 07:10 Hct 33.6 % (35.5-45.6) L 11/21/19 07:10 MCV 84 fl (84-94) 11/21/19 07:10 MCH 27 pg (28-32) L 11/21/19 07:10 MCHC 33 % (32-34) 11/21/19 07:10 RDW 18.3 % (13.2-15.2) H 11/21/19 07:10 Plt Count 221 K/mm3 (140-440) 11/21/19 07:10 Lymph % (Auto) 15.2 % (13.4-35.0) 11/21/19 07:10 [place] % (Auto) 12.6 % (0.0-7.3) H 11/21/19 07:10 Eos % (Auto) 1.6 % (0.0-4.3) 11/21/19 07:10 Baso % (Auto) 1.1 % (0.0-1.8) 11/21/19 07:10 Lymph # 1.1 K/mm3 (1.2-5.4) L 11/21/19 07:10 [place] # 0.9 K/mm3 (0.0-0.8) H 11/21/19 07:10 Eos # 0.1 K/mm3 (0.0-0.4) 11/21/19 07:10 Baso # 0.1 K/mm3 (0.0-0.1) 11/21/19 07:10 Seg Neutrophils % 69.5 % (40.0-70.0) 11/21/19 07:10 Seg Neutrophils # 4.9 K/mm3 (1.8-7.7) 11/21/19 07:10 Sodium 136 mmol/L (137-145) L 11/21/19 07:10 Potassium 4.9 mmol/L (3.6-5.0) 11/21/19 07:10 Chloride 97.2 mmol/L (98-107) L 11/21/19 07:10 Carbon Dioxide 29 mmol/L (22-30) 11/21/19 07:10 Anion Gap 15 mmol/L 11/21/19 07:10 BUN 32 mg/dL (9-20) H 11/21/19 07:10 Creatinine 1.0 mg/dL (0.8-1.5) 11/21/19 07:10 Estimated GFR > 60 ml/min 11/21/19 07:10 BUN/Creatinine Ratio 32 % 11/21/19 07:10 Glucose 87 mg/dL (75-100) 11/21/19 07:10 POC Glucose 88 (70-105) 11/21/19 06:34 Hemoglobin A1c 4.7 % (4-6) 11/21/19 07:10 Calcium 9.4 mg/dL (8.4-10.2) 11/21/19 07:10 Magnesium 2.30 mg/dL (1.7-2.3) 11/23/19 12:11 Total Bilirubin 0.40 mg/dL (0.1-1.2) 11/21/19 07:10 AST 25 units/L (5-40) 11/21/19 07:10 ALT 15 units/L (7-56) 11/21/19 07:10 Alkaline Phosphatase 138 units/L (35-129) H 11/21/19 07:10 Total Protein 6.9 g/dL (6.3-8.2) 11/21/19 07:10 Albumin 3.7 g/dL (3.9-5) L 11/21/19 07:10 Albumin/Globulin Ratio 1.2 % 11/21/19 07:10 Triglycerides 108 mg/dL (2-149) 11/21/19 07:10 Cholesterol 131 mg/dL (50-199) 11/21/19 07:10 LDL Cholesterol Direct 69 mg/dL (50-130) 11/21/19 07:10 HDL Cholesterol 55 mg/dL (40-59) 11/21/19 07:10 Cholesterol/HDL Ratio 2.38 % 11/21/19 07:10 TSH 8.400 mlU/mL (0.270-4.200) H 11/21/19 07:10 Free T4 0.98 ng/dL (0.76-1.46) 11/23/19 12:11 Last Vital Signs Temp 98.0 F 11/24/19 19:46 Pulse 78 11/24/19 22:05 Resp 18 11/24/19 22:05 BP 124/78 11/24/19 19:46 Pulse Ox 100 11/24/19 21:24
[2019-11-25] MEDS: BUDESONIDE 0.5 MG/2 ML NEBU IH SCH ×2 (10:27→22:06)
[2019-11-25] MEDS: ARFORMOTEROL 15 MCG/2 ML NEBU IH SCH ×2 (10:27→22:06)
[2019-11-25] MEDS: ASPIRIN EC 81 MG TAB PO SCH (12:00)
[2019-11-25] MEDS: DIVALPROEX DR 125 MG TAB PO SCH ×3 (12:00→21:12)
[2019-11-25] MEDS: NICOTINE 21 MG/24 HR PATCH TD SCH (12:00)
[2019-11-25] MEDS: SPIRONOLACTONE 50 MG TAB PO SCH (12:00)
[2019-11-25] MEDS: risperiDONE 1 MG TAB PO SCH ×3 (12:01→21:13)
[2019-11-25] MEDS: APIXABAN 5 MG TAB PO SCH ×3 (12:01→21:13)
[2019-11-25] MEDS: SERTRALINE 25 MG TAB PO SCH (12:02)
[2019-11-25] MEDS: FUROSEMIDE 20 MG TAB PO SCH ×3 (12:02→21:12)
[2019-11-25] MEDS: ACETAMINOPHEN 325 MG TAB PO PRN (12:02)
[2019-11-25] MEDS: LOSARTAN 50 MG TAB PO SCH ×2 (12:07→16:26)
[2019-11-25] MEDS: MELATONIN 5 MG TAB PO PRN (21:12)
[2019-11-26] MEDS: ACETAMINOPHEN 325 MG TAB PO PRN ×2 (03:03→11:49)
[2019-11-26] MEDS: HYPROMELLOSE 0.5% OPHTH SOLN 15 ML OU SCH ×6 (03:03→22:36)
[2019-11-26] MEDS: LEVOTHYROXINE 50 MCG TAB PO SCH (06:24)
--- NOTE | 2019-11-26 08:10 | Progress Note ---
Subjective Date of service: 11/26/19 Principal diagnosis: Major Depressive Disorder Subjective Comment: The patient's medical record was reviewed and the patient's progress was discussed with the nursing staff. The nurse note states the patient rested for 4hrs plus during the night. Nursing staff also states the patient still somewhat depressed, withdrawn to himself, and delusional. This morning, he repeatedly came to the to the nurse's station asking for his second cardiac cath lab manager. He as one attached to his chest wall. The patient also is non-compliant with medications. During my interview with the patient, he is sitting in the dayroom off to himself. The patient is a/ox 3. He is calm and cooperative. The patient denies SI/HI. He also denies hallucinations of any kind. He describes his mood as "alright." The patient says he "didn't sleep well." He says "I had nightmares. I don't think they were hallucinations." He then laughs. Reinforced to patient the benefit and importance of him taking his medications. He verbalized agreement. Reason for continued inpatient treatment: The patient is improving, but shows signs of underlying depression. He is withdrawn, has impaired sleep pattern, and is noncompliant with medication regimen. The patient also has had some periods of delusions. REVIEW OF SYSTEMS Constitutional: Negative for weight loss ENT: Negative for stridor Respiratory: Negative for cough or hemoptysis All other systems reviewed and are negative MENTAL STATUS EXAMINATION General Appearance: Dressed appropriately. Fair eye contact Behavior: Calm and cooperative. Withdrawn. Speech: Normal rate and pace Mood: "alright" Affect: Congruent with stated mood Thought Process: Goal directed Thought Content Suicidal Ideation: Denies Homicidal Ideation: Denies Hallucinations: Denies Delusions: Yes Insight/Judgment: Limited Memory/Cognition: Limited Assessment and Plan Major Depressive Disorder Treatment Plan Patient will be admitted for inpatient psychiatric evaluation, medication adjustment and close monitoring The patient's behavior, mood, sleep and appetite will be closely monitored. Patient will be enrolled in individual and group therapeutic sessions and encouraged to attend. Patient will be provided with a safe and structured environment. Patient's physical health needs will be addressed by the Hospitalist. Hospitalist Consulted Labs including CBC, CMP, Lipid profile and Hemoglobin A1C ordered Social Assessment will be completed and the Data Entry Supervisor will work with patient and family to ensure a suitable and safe disposition Medication adjustment will be made as clinically indicated Usual Wellness [employer]/Preservation: -Trazodone 50mg po daily - Increase Zoloft 50mg po daily - Increase Depakote 250mg po BID The patient agreed on the treatment plan, understood the risk, benefit, alternative treatment, potential consequence of no treatment, and gave informed consent. Estimated period of time patient will need to remain in the hospital: [4] Outpatient treatment upon discharge Medications and Allergies Allergies Allergy/AdvReac Type Severity Reaction Status Date / Time lactose Allergy Unknown Verified 11/21/19 03:25 peanut Allergy Unknown Verified 11/20/19 14:04 tramadol Allergy Unknown Verified 11/21/19 03:25 Home Medications Medication Instructions Recorded Confirmed Last Taken Type Acetaminophen TAB 650 mg PO Q8H PRN 11/21/19 11/21/19 Unknown History Apixaban 5 mg PO BID 11/21/19 11/21/19 Unknown History Artificial Tears Drops 1%/0.3% 1 drop OU Q4H 11/21/19 11/21/19 Unknown History Aspirin [Adult Aspirin] 81 mg PO DAILY 11/21/19 11/21/19 Unknown History AtorvaSTATin 10 mg PO DAILY 11/21/19 11/21/19 Unknown History Budesonide-Formoterol 160-4.5 2 puff INHALATION BID 11/21/19 11/21/19 Unknown History Calcium Carbonate [Calcium 500 mg PO DAILY 11/21/19 11/21/19 Unknown History Carbonate 500MG TAB] Fluticasone/Vilanterol 1 puff INHALATION DAILY 11/21/19 11/21/19 Unknown History Furosemide [Lasix TAB] 20 mg PO BID 11/21/19 11/21/19 Unknown History Losartan 100 mg PO DAILY 11/21/19 11/21/19 Unknown History Magnesium Oxide 400 mg PO DAILY 11/21/19 11/21/19 Unknown History Pantoprazole 40 mg PO BID 11/21/19 11/21/19 Unknown History Sennosides [Senna] 8.6 mg PO BID 11/21/19 11/21/19 Unknown History Spironolactone [Aldactone] 50 mg PO QDAY 11/21/19 11/21/19 Unknown History guaiFENesin 600 mg PO Q12H 11/21/19 11/21/19 Unknown History Active Meds: Active Medications Acetaminophen (Tylenol) 650 mg PO Q8H PRN PRN Reason: Pain , Severe (7-10) Last Admin: 11/26/19 03:03 Dose: 650 mg Documented by: Apixaban (Eliquis) 5 mg PO Q12HR [facility] Last Admin: 11/25/19 21:13 Dose: Not Given Documented by: Arformoterol Tartrate (Brovana Nebu) 15 mcg IH Q12HRT [facility] Last Admin: 11/25/19 22:06 Dose: 15 mcg Documented by: Artificial Tears (Isopto Tears 0.5%) 1 drops OU Q4H [facility] Last Admin: 11/26/19 06:24 Dose: 1 drops Documented by: Aspirin (Halfprin Ec) 81 mg PO DAILY [facility] Last Admin: 11/25/19 12:00 Dose: 81 mg Documented by: Atorvastatin Calcium (Atorvastatin) 10 mg PO DAILY [facility] Last Admin: 11/25/19 12:01 Dose: 10 mg Documented by: Budesonide (Pulmicort) 0.5 mg IH Q12HRT [facility] Last Admin: 11/25/19 22:06 Dose: 0.5 mg Documented by: Divalproex Sodium (Depakote Dr) 125 mg PO BID [facility] Last Admin: 11/25/19 21:12 Dose: Not Given Documented by: Furosemide (Lasix) 20 mg PO BID [facility] Last Admin: 11/25/19 21:12 Dose: 20 mg Documented by: Levothyroxine Sodium (Synthroid) 50 mcg PO DAILY@0600 [facility] Last Admin: 11/26/19 06:24 Dose: 50 mcg Documented by: Losartan Potassium (Cozaar) 100 mg PO QDAY [facility] Last Admin: 11/25/19 16:26 Dose: Not Given Documented by: Melatonin (Melatonin) 5 mg PO QHS PRN PRN Reason: Sleep Last Admin: 11/25/19 21:12 Dose: 5 mg Documented by: Nicotine (Habitrol) 21 mg TD QDAY [facility] Last Admin: 11/25/19 12:00 Dose: 21 mg Documented by: Risperidone (Risperdal) 1 mg PO BID [facility] Last Admin: 11/25/19 21:13 Dose: Not Given Documented by: Sertraline HCl (Zoloft) 25 mg PO QDAY [facility] Last Admin: 11/25/19 12:02 Dose: 25 mg Documented by: Spironolactone (Aldactone) 50 mg PO QDAY [facility] Last Admin: 11/25/19 12:00 Dose: 50 mg Documented by: Results - Results Labs/Vitals: Laboratory Last Values WBC 7.0 K/mm3 (4.5-11.0) 11/21/19 07:10 RBC 4.01 M/mm3 (3.65-5.03) 11/21/19 07:10 Hgb 11.0 gm/dl (11.8-15.2) L 11/21/19 07:10 Hct 33.6 % (35.5-45.6) L 11/21/19 07:10 MCV 84 fl (84-94) 11/21/19 07:10 MCH 27 pg (28-32) L 11/21/19 07:10 MCHC 33 % (32-34) 11/21/19 07:10 RDW 18.3 % (13.2-15.2) H 11/21/19 07:10 Plt Count 221 K/mm3 (140-440) 11/21/19 07:10 Lymph % (Auto) 15.2 % (13.4-35.0) 11/21/19 07:10 [place] % (Auto) 12.6 % (0.0-7.3) H 11/21/19 07:10 Eos % (Auto) 1.6 % (0.0-4.3) 11/21/19 07:10 Baso % (Auto) 1.1 % (0.0-1.8) 11/21/19 07:10 Lymph # 1.1 K/mm3 (1.2-5.4) L 11/21/19 07:10 [place] # 0.9 K/mm3 (0.0-0.8) H 11/21/19 07:10 Eos # 0.1 K/mm3 (0.0-0.4) 11/21/19 07:10 Baso # 0.1 K/mm3 (0.0-0.1) 11/21/19 07:10 Seg Neutrophils % 69.5 % (40.0-70.0) 11/21/19 07:10 Seg Neutrophils # 4.9 K/mm3 (1.8-7.7) 11/21/19 07:10 Sodium 136 mmol/L (137-145) L 11/21/19 07:10 Potassium 4.9 mmol/L (3.6-5.0) 11/21/19 07:10 Chloride 97.2 mmol/L (98-107) L 11/21/19 07:10 Carbon Dioxide 29 mmol/L (22-30) 11/21/19 07:10 Anion Gap 15 mmol/L 11/21/19 07:10 BUN 32 mg/dL (9-20) H 11/21/19 07:10 Creatinine 1.0 mg/dL (0.8-1.5) 11/21/19 07:10 Estimated GFR > 60 ml/min 11/21/19 07:10 BUN/Creatinine Ratio 32 % 11/21/19 07:10 Glucose 87 mg/dL (75-100) 11/21/19 07:10 POC Glucose 88 (70-105) 11/21/19 06:34 Hemoglobin A1c 4.7 % (4-6) 11/21/19 07:10 Calcium 9.4 mg/dL (8.4-10.2) 11/21/19 07:10 Magnesium 2.30 mg/dL (1.7-2.3) 11/23/19 12:11 Total Bilirubin 0.40 mg/dL (0.1-1.2) 11/21/19 07:10 AST 25 units/L (5-40) 11/21/19 07:10 ALT 15 units/L (7-56) 11/21/19 07:10 Alkaline Phosphatase 138 units/L (35-129) H 11/21/19 07:10 Total Protein 6.9 g/dL (6.3-8.2) 11/21/19 07:10 Albumin 3.7 g/dL (3.9-5) L 11/21/19 07:10 Albumin/Globulin Ratio 1.2 % 11/21/19 07:10 Triglycerides 108 mg/dL (2-149) 11/21/19 07:10 Cholesterol 131 mg/dL (50-199) 11/21/19 07:10 LDL Cholesterol Direct 69 mg/dL (50-130) 11/21/19 07:10 HDL Cholesterol 55 mg/dL (40-59) 11/21/19 07:10 Cholesterol/HDL Ratio 2.38 % 11/21/19 07:10 TSH 8.400 mlU/mL (0.270-4.200) H 11/21/19 07:10 Free T4 0.98 ng/dL (0.76-1.46) 11/23/19 12:11 Last Vital Signs Temp 97.3 F L 11/26/19 07:41 Pulse 73 11/26/19 07:41 Resp 16 11/26/19 07:41 BP 135/73 11/26/19 07:41 Pulse Ox 97 11/26/19 07:41
[2019-11-26] MEDS: NICOTINE 21 MG/24 HR PATCH TD SCH (09:49)
[2019-11-26] MEDS: APIXABAN 5 MG TAB PO SCH ×2 (09:51→22:37)
[2019-11-26] MEDS: FUROSEMIDE 20 MG TAB PO SCH ×2 (09:51→22:37)
[2019-11-26] MEDS: LOSARTAN 50 MG TAB PO SCH (09:52)
[2019-11-26] MEDS: risperiDONE 1 MG TAB PO SCH ×2 (09:52→22:14)
[2019-11-26] MEDS: SERTRALINE 50 MG TAB PO SCH (09:56)
[2019-11-26] MEDS: DIVALPROEX DR 250 MG TAB PO SCH ×2 (09:56→22:14)
[2019-11-26] MEDS: ASPIRIN EC 81 MG TAB PO SCH (09:59)
[2019-11-26] MEDS: ARFORMOTEROL 15 MCG/2 ML NEBU IH SCH ×2 (10:11→22:45)
[2019-11-26] MEDS: BUDESONIDE 0.5 MG/2 ML NEBU IH SCH ×2 (10:11→22:46)
[2019-11-26] MEDS: SPIRONOLACTONE 50 MG TAB PO SCH (12:12)
[2019-11-26] MEDS: traZODone 50 MG TAB PO SCH (22:13)
--- NOTE | 2019-11-27 07:08 | Progress Note ---
Subjective Date of service: 11/27/19 Principal diagnosis: Major Depressive Disorder Subjective Comment: Psych Nurse: Patient was quiet throughout the evening but when he did interact he was appropriate. He denies si/hi/ah/vh. When he took his medications he refused part of them stating he has taken 15 pills today and does not want to take more. This financial writer explained the importance of his meds including the blood thinner he takes for a-fib. Patient still will not take them. He states "I won't need to take these much longer". Will continue to monitor patient for safety. Reason for continued inpatient treatment: Isolated and withdrawn to self, poor sleep with nightmares. Pt refusing medicine and selective with a few others, intermittent confusion. Psychotherapy provided, pt aware he needs to take his meds. Will also adjust meds today to reduce polypharmacy. PSYCH PROGRESS HPI Today, patient reports being confused, says he is not [place], endorses night luog and very bad dreams over night. Patient states he is selective with medicines because he feels his getting too much with intent of us making him look like a zombie. Pt endorses eating good, denies SI, HI or AVH. REVIEW OF SYSTEMS Constitutional: Negative for weight loss ENT: Negative for stridor Respiratory: Negative for cough or hemoptysis All other systems reviewed and are negative MENTAL STATUS EXAMINATION General Appearance and Behavior: Age appropriate, fair hygiene, wearing appropriate clothes, good eye contact, cooperative polite with questioning. Cooperation: Participating/engaged Psychomotor Behavior: unremarkable and within normal limits Mood: feel good Affect and affective range: incongruent with mood Thought Process: Fluent/Logical Thought Content: Within reality Speech: Normal volume, Regular rate and rhythm Intellectual Functioning: Average Suicidal Ideation: denies Homicidal Ideation: Denies HI Impulse Control: Unimpaired Insight and Judgment: Normal insight and judgment Memory: Normal Attention: Normal Orientation: Alert, oriented, anxious. Assessment and Plan - Psychiatric problem (1) MDD (major depressive disorder), recurrent episode, severe Current Visit: Yes Status: Acute Patient complained about too much medications: Medication reviewed with prescriptions home meds, and was able to discontinue 5 medications. Patient will be admitted for inpatient psychiatric evaluation, medication adjustment and close monitoring The patient's behavior, mood, sleep and appetite will be closely monitored. Patient will be enrolled in individual and group therapeutic sessions and encouraged to attend. Patient will be provided with a safe and structured environment. Patient's physical health needs will be addressed by the Hospitalist. Hospitalist Consulted Labs including CBC, CMP, Lipid profile and Hemoglobin A1C ordered Social Assessment will be completed and the Wastewater Project Manager will work with patient and family to ensure a suitable and safe disposition Medication adjustment will be made as clinically indicated Usual Wellness Muslim/Preservation: - Start Trazodone 50 mg po QHS & 50 mg po QHS PRN between 10 PM & 2 AM for insomnia - Start Melatonin 5 mg po QHS to promote circadian rhythm - Start [place]-3 for brain health, reduce impulsivity, and as adjunctive treatment for mood disorder, continue upon discharge given overall benefits. - Start B1 prophylaxis with 200 mg po for 5 days The patient agreed on the treatment plan, understood the risk, benefit, alternative treatment, potential consequence of no treatment, and gave informed consent. Initial Certification This is an acknowledgement statement that Demetrio Burnett is a 56 year old F who requires inpatient psychiatric admission for treatment which could reaso nably be expected to improve the patient's condition for Estimated period of time patient will need to remain in the hospital: [2] Medications and Allergies Allergies Allergy/AdvReac Type Severity Reaction Status Date / Time lactose Allergy Unknown Verified 11/21/19 03:25 peanut Allergy Unknown Verified 11/20/19 14:04 tramadol Allergy Unknown Verified 11/21/19 03:25 Home Medications Medication Instructions Recorded Confirmed Last Taken Type Acetaminophen TAB 650 mg PO Q8H PRN 11/21/19 11/21/19 Unknown History Apixaban 5 mg PO BID 11/21/19 11/21/19 Unknown History Artificial Tears Drops 1%/0.3% 1 drop OU Q4H 11/21/19 11/21/19 Unknown History Aspirin [Adult Aspirin] 81 mg PO DAILY 11/21/19 11/21/19 Unknown History AtorvaSTATin 10 mg PO DAILY 11/21/19 11/21/19 Unknown History Budesonide-Formoterol 160-4.5 2 puff INHALATION BID 11/21/19 11/21/19 Unknown History Calcium Carbonate [Calcium 500 mg PO DAILY 11/21/19 11/21/19 Unknown History Carbonate 500MG TAB] Fluticasone/Vilanterol 1 puff INHALATION DAILY 11/21/19 11/21/19 Unknown History Furosemide [Lasix TAB] 20 mg PO BID 11/21/19 11/21/19 Unknown History Losartan 100 mg PO DAILY 11/21/19 11/21/19 Unknown History Magnesium Oxide 400 mg PO DAILY 11/21/19 11/21/19 Unknown History Pantoprazole 40 mg PO BID 11/21/19 11/21/19 Unknown History Sennosides [Senna] 8.6 mg PO BID 11/21/19 11/21/19 Unknown History Spironolactone [Aldactone] 50 mg PO QDAY 11/21/19 11/21/19 Unknown History guaiFENesin 600 mg PO Q12H 11/21/19 11/21/19 Unknown History Active Meds: Active Medications Acetaminophen (Tylenol) 650 mg PO Q8H PRN PRN Reason: Pain , Severe (7-10) Last Admin: 11/26/19 11:49 Dose: 650 mg Documented by: Apixaban (Eliquis) 5 mg PO Q12HR [facility] Last Admin: 11/26/19 22:37 Dose: Not Given Documented by: Arformoterol Tartrate (Brovana Nebu) 15 mcg IH Q12HRT [facility] Last Admin: 11/26/19 22:45 Dose: Not Given Documented by: Artificial Tears (Isopto Tears 0.5%) 1 drops OU Q4H [facility] Last Admin: 11/26/19 22:36 Dose: 1 drops Documented by: Aspirin (Halfprin Ec) 81 mg PO DAILY [facility] Last Admin: 11/26/19 09:59 Dose: 81 mg Documented by: Atorvastatin Calcium (Atorvastatin) 10 mg PO DAILY [facility] Last Admin: 11/26/19 09:52 Dose: 10 mg Documented by: Budesonide (Pulmicort) 0.5 mg IH Q12HRT [facility] Last Admin: 11/26/19 22:46 Dose: Not Given Documented by: Divalproex Sodium (Depakote Dr) 250 mg PO BID [facility] Last Admin: 11/26/19 22:14 Dose: 250 mg Documented by: Furosemide (Lasix) 20 mg PO BID [facility] Last Admin: 11/26/19 22:37 Dose: Not Given Documented by: Levothyroxine Sodium (Synthroid) 50 mcg PO DAILY@0600 [facility] Last Admin: 11/26/19 06:24 Dose: 50 mcg Documented by: Losartan Potassium (Cozaar) 100 mg PO QDAY [facility] Last Admin: 11/26/19 09:52 Dose: Not Given Documented by: Melatonin (Melatonin) 5 mg PO QHS PRN PRN Reason: Sleep Last Admin: 11/25/19 21:12 Dose: 5 mg Documented by: Nicotine (Habitrol) 21 mg TD QDAY [facility] Last Admin: 11/26/19 09:49 Dose: 21 mg Documented by: Risperidone (Risperdal) 1 mg PO BID [facility] Last Admin: 11/26/19 22:14 Dose: 1 mg Documented by: Sertraline HCl (Zoloft) 50 mg PO QDAY [facility] Last Admin: 11/26/19 09:56 Dose: 50 mg Documented by: Spironolactone (Aldactone) 50 mg PO QDAY [facility] Last Admin: 11/26/19 12:12 Dose: Not Given Documented by: Trazodone HCl (Desyrel) 50 mg PO QHS [facility] Last Admin: 11/26/19 22:13 Dose: 50 mg Documented by: Results - Results Labs/Vitals: Laboratory Last Values WBC 7.0 K/mm3 (4.5-11.0) 11/21/19 07:10 RBC 4.01 M/mm3 (3.65-5.03) 11/21/19 07:10 Hgb 11.0 gm/dl (11.8-15.2) L 11/21/19 07:10 Hct 33.6 % (35.5-45.6) L 11/21/19 07:10 MCV 84 fl (84-94) 11/21/19 07:10 MCH 27 pg (28-32) L 11/21/19 07:10 MCHC 33 % (32-34) 11/21/19 07:10 RDW 18.3 % (13.2-15.2) H 11/21/19 07:10 Plt Count 221 K/mm3 (140-440) 11/21/19 07:10 Lymph % (Auto) 15.2 % (13.4-35.0) 11/21/19 07:10 [place] % (Auto) 12.6 % (0.0-7.3) H 11/21/19 07:10 Eos % (Auto) 1.6 % (0.0-4.3) 11/21/19 07:10 Baso % (Auto) 1.1 % (0.0-1.8) 11/21/19 07:10 Lymph # 1.1 K/mm3 (1.2-5.4) L 11/21/19 07:10 [place] # 0.9 K/mm3 (0.0-0.8) H 11/21/19 07:10 Eos # 0.1 K/mm3 (0.0-0.4) 11/21/19 07:10 Baso # 0.1 K/mm3 (0.0-0.1) 11/21/19 07:10 Seg Neutrophils % 69.5 % (40.0-70.0) 11/21/19 07:10 Seg Neutrophils # 4.9 K/mm3 (1.8-7.7) 11/21/19 07:10 Sodium 136 mmol/L (137-145) L 11/21/19 07:10 Potassium 4.9 mmol/L (3.6-5.0) 11/21/19 07:10 Chloride 97.2 mmol/L (98-107) L 11/21/19 07:10 Carbon Dioxide 29 mmol/L (22-30) 11/21/19 07:10 Anion Gap 15 mmol/L 11/21/19 07:10 BUN 32 mg/dL (9-20) H 11/21/19 07:10 Creatinine 1.0 mg/dL (0.8-1.5) 11/21/19 07:10 Estimated GFR > 60 ml/min 11/21/19 07:10 BUN/Creatinine Ratio 32 % 11/21/19 07:10 Glucose 87 mg/dL (75-100) 11/21/19 07:10 POC Glucose 88 (70-105) 11/21/19 06:34 Hemoglobin A1c 4.7 % (4-6) 11/21/19 07:10 Calcium 9.4 mg/dL (8.4-10.2) 11/21/19 07:10 Magnesium 2.30 mg/dL (1.7-2.3) 11/23/19 12:11 Total Bilirubin 0.40 mg/dL (0.1-1.2) 11/21/19 07:10 AST 25 units/L (5-40) 11/21/19 07:10 ALT 15 units/L (7-56) 11/21/19 07:10 Alkaline Phosphatase 138 units/L (35-129) H 11/21/19 07:10 Total Protein 6.9 g/dL (6.3-8.2) 11/21/19 07:10 Albumin 3.7 g/dL (3.9-5) L 11/21/19 07:10 Albumin/Globulin Ratio 1.2 % 11/21/19 07:10 Triglycerides 108 mg/dL (2-149) 11/21/19 07:10 Cholesterol 131 mg/dL (50-199) 11/21/19 07:10 LDL Cholesterol Direct 69 mg/dL (50-130) 11/21/19 07:10 HDL Cholesterol 55 mg/dL (40-59) 11/21/19 07:10 Cholesterol/HDL Ratio 2.38 % 11/21/19 07:10 TSH 8.400 mlU/mL (0.270-4.200) H 11/21/19 07:10 Free T4 0.98 ng/dL (0.76-1.46) 11/23/19 12:11 Free T3 Index 3.2 pg/mL (2.3-4.2) 11/23/19 12:11 Last Vital Signs Temp 98.1 F 11/26/19 22:00 Pulse 83 11/26/19 19:08 Resp 18 11/26/19 22:00 BP 127/77 11/26/19 19:08 Pulse Ox 98 11/26/19 19:08
[2019-11-27] MEDS: HYPROMELLOSE 0.5% OPHTH SOLN 15 ML OU SCH ×6 (07:27→23:45)
[2019-11-27] MEDS: LEVOTHYROXINE 50 MCG TAB PO SCH (07:29)
[2019-11-27] MEDS: SPIRONOLACTONE 50 MG TAB PO SCH (11:15)
[2019-11-27] MEDS: SERTRALINE 50 MG TAB PO SCH (11:15)
[2019-11-27] MEDS: DIVALPROEX DR 250 MG TAB PO SCH (11:15)
[2019-11-27] MEDS: LOSARTAN 50 MG TAB PO SCH (11:17)
[2019-11-27] MEDS: risperiDONE 1 MG TAB PO SCH ×2 (11:17→21:44)
[2019-11-27] MEDS: FUROSEMIDE 20 MG TAB PO SCH ×2 (11:18→21:43)
[2019-11-27] MEDS: NICOTINE 21 MG/24 HR PATCH TD SCH (11:18)
[2019-11-27] MEDS: APIXABAN 5 MG TAB PO SCH ×2 (11:26→21:43)
[2019-11-27] MEDS: BUDESONIDE 0.5 MG/2 ML NEBU IH SCH ×2 (12:39→20:30)
[2019-11-27] MEDS: ARFORMOTEROL 15 MCG/2 ML NEBU IH SCH ×2 (12:39→20:30)
[2019-11-27] MEDS ORDERED: DIVALPROEX DR 250 MG TAB PO SCH (19:17)
[2019-11-27] MEDS: ACETAMINOPHEN 325 MG TAB PO PRN (21:00)
[2019-11-27] MEDS: DIVALPROEX DR 500 MG TAB PO SCH (21:42)
[2019-11-27] MEDS: MELATONIN 5 MG TAB PO SCH (21:43)
[2019-11-27] MEDS: traZODone 50 MG TAB PO SCH (21:43)
[2019-11-28] MEDS: HYPROMELLOSE 0.5% OPHTH SOLN 15 ML OU SCH ×6 (03:45→23:47)
[2019-11-28] MEDS: LEVOTHYROXINE 50 MCG TAB PO SCH (06:10)
--- NOTE | 2019-11-28 07:02 | Progress Note ---
Subjective Date of service: 11/28/19 Principal diagnosis: Major Depressive Disorder Subjective Comment: Psych Nurse: Pt remained isolative and withdrawn with no peer interaction. He will engage with staff minimally. Pt was initally refusing his medication and when encoured to do so he became loud shouting at staff to "get away from me," and requesting to only have Tylenol. He complained of a headache 12/10 and was given tylenol 650mg po which was effective. Pt was later offered medication and selectively took his eliquis 5mg, [id number] and lasix 20mg refusing the rest. Pt assisted with adls. Pt denies SI and continues to have poor insight into care. Will continue to monitor q 15 min for safety. PSYCH PROGRESS HPI Patient reports doing good today, says he his looking forward to being discharged and going home but he would like to be discharged to a hospice facility, says his home environment his rough on him and his health and age makes things more difficult and he would need some sort of help. Patient denies any SI, HI or sleep disturbances. Patient was seen assisting other patient with getting them water. Reason for continued inpatient treatment: Valproate levels was very low at 17, meds increased yesterday Patient more lucid, exhibits good insight into his health issues and making reasonable needs more known thou selective with medications bt has been compliant with taking psych meds. Will discuss pts concerns with social work for hospice. REVIEW OF SYSTEMS Constitutional: Negative for weight loss ENT: Negative for stridor Respiratory: Negative for cough or hemoptysis All other systems reviewed and are negative MENTAL STATUS EXAMINATION General Appearance and Behavior: Age appropriate, fair hygiene, wearing appropriate clothes, good eye contact, cooperative polite with questioning. Cooperation: Participating/engaged Psychomotor Behavior: unremarkable and within normal limits Mood: feel good Affect and affective range: incongruent with mood Thought Process: Fluent/Logical Thought Content: Within reality Speech: Normal volume, Regular rate and rhythm Intellectual Functioning: Average Suicidal Ideation: denies Homicidal Ideation: Denies HI Impulse Control: Unimpaired Insight and Judgment: Normal insight and judgment Memory: Normal Attention: Normal Orientation: Alert, oriented, anxious. Assessment and Plan - Psychiatric problem (1) MDD (major depressive disorder), recurrent episode, severe Current Visit: Yes Status: Acute Continue current meds Patient will be admitted for inpatient psychiatric evaluation, medication adjustment and close monitoring The patient's behavior, mood, sleep and appetite will be closely monitored. Patient will be enrolled in individual and group therapeutic sessions and encouraged to attend. Patient will be provided with a safe and structured environment. Patient's physical health needs will be addressed by the Hospitalist. Hospitalist Consulted Labs including CBC, CMP, Lipid profile and Hemoglobin A1C ordered Social Assessment will be completed and the Perl Developer will work with patient and family to ensure a suitable and safe disposition Medication adjustment will be made as clinically indicated Usual Wellness Muslim/Preservation: - Start Trazodone 50 mg po QHS & 50 mg po QHS PRN between 10 PM & 2 AM for insomnia - Start Melatonin 5 mg po QHS to promote circadian rhythm - Start [place]-3 for brain health, reduce impulsivity, and as adjunctive treatment for mood disorder, continue upon discharge given overall benefits. - Start B1 prophylaxis with 200 mg po for 5 days The patient agreed on the treatment plan, understood the risk, benefit, alternative treatment, potential consequence of no treatment, and gave informed consent. Initial Certification This is an acknowledgement statement that Lex Demetrio Orellana is a 56 year old F who requires inpatient psychiatric admission for treatment which could reasonably be expected to improve the patient's condition for Estimated period of time patient will need to remain in the hospital: [2] Medications and Allergies Allergies Allergy/AdvReac Type Severity Reaction Status Date / Time lactose Allergy Unknown Verified 11/21/19 03:25 peanut Allergy Unknown Verified 11/20/19 14:04 tramadol Allergy Unknown Verified 11/21/19 03:25 Home Medications Medication Instructions Recorded Confirmed Last Taken Type Acetaminophen TAB 650 mg PO Q8H PRN 11/21/19 11/21/19 Unknown History Apixaban 5 mg PO BID 11/21/19 11/21/19 Unknown History Artificial Tears Drops 1%/0.3% 1 drop OU Q4H 11/21/19 11/21/19 Unknown History Aspirin [Adult Aspirin] 81 mg PO DAILY 11/21/19 11/21/19 Unknown History AtorvaSTATin 10 mg PO DAILY 11/21/19 11/21/19 Unknown History Budesonide-Formoterol 160-4.5 2 puff INHALATION BID 11/21/19 11/21/19 Unknown History Calcium Carbonate [Calcium 500 mg PO DAILY 11/21/19 11/21/19 Unknown History Carbonate 500MG TAB] Fluticasone/Vilanterol 1 puff INHALATION DAILY 11/21/19 11/21/19 Unknown History Furosemide [Lasix TAB] 20 mg PO BID 11/21/19 11/21/19 Unknown History Losartan 100 mg PO DAILY 11/21/19 11/21/19 Unknown History Magnesium Oxide 400 mg PO DAILY 11/21/19 11/21/19 Unknown History Pantoprazole 40 mg PO BID 11/21/19 11/21/19 Unknown History Sennosides [Senna] 8.6 mg PO BID 11/21/19 11/21/19 Unknown History Spironolactone [Aldactone] 50 mg PO QDAY 11/21/19 11/21/19 Unknown History guaiFENesin 600 mg PO Q12H 11/21/19 11/21/19 Unknown History Active Meds: Active Medications Acetaminophen (Tylenol) 650 mg PO Q8H PRN PRN Reason: Pain , Severe (7-10) Last Admin: 11/27/19 21:00 Dose: 650 mg Documented by: Apixaban (Eliquis) 5 mg PO Q12HR [facility] Last Admin: 11/27/19 21:43 Dose: 5 mg Documented by: Arformoterol Tartrate (Brovana Nebu) 15 mcg IH Q12HRT [facility] Last Admin: 11/27/19 20:30 Dose: 15 mcg Documented by: Artificial Tears (Isopto Tears 0.5%) 1 drops OU Q4H [facility] Last Admin: 11/28/19 03:45 Dose: Not Given Documented by: Atorvastatin Calcium (Atorvastatin) 10 mg PO DAILY [facility] Last Admin: 11/27/19 11:17 Dose: 10 mg Documented by: Budesonide (Pulmicort) 0.5 mg IH Q12HRT [facility] Last Admin: 11/27/19 20:30 Dose: 0.5 mg Documented by: Divalproex Sodium (Depakote Dr) 500 mg PO BID [facility] Last Admin: 11/27/19 21:42 Dose: 500 mg Documented by: Furosemide (Lasix) 20 mg PO BID [facility] Last Admin: 11/27/19 21:43 Dose: 20 mg Documented by: Levothyroxine Sodium (Synthroid) 50 mcg PO DAILY@0600 [facility] Last Admin: 11/28/19 06:10 Dose: 50 mcg Documented by: Losartan Potassium (Cozaar) 100 mg PO QDAY [facility] Last Admin: 11/27/19 11:17 Dose: 100 mg Documented by: Melatonin (Melatonin) 10 mg PO QHS@2100 [facility] Last Admin: 11/27/19 21:43 Dose: Not Given Documented by: Nicotine (Habitrol) 21 mg TD QDAY [facility] Last Admin: 11/27/19 11:18 Dose: 21 mg Documented by: Risperidone (Risperdal) 1 mg PO BID [facility] Last Admin: 11/27/19 21:44 Dose: Not Given Documented by: Sertraline HCl (Zoloft) 50 mg PO QDAY [facility] Last Admin: 11/27/19 11:15 Dose: 50 mg Documented by: Spironolactone (Aldactone) 50 mg PO QDAY [facility] Last Admin: 11/27/19 11:15 Dose: 50 mg Documented by: Trazodone HCl (Desyrel) 50 mg PO QHS [facility] Last Admin: 11/27/19 21:43 Dose: Not Given Documented by: Results - Results Labs/Vitals: Laboratory Last Values WBC 7.0 K/mm3 (4.5-11.0) 11/21/19 07:10 RBC 4.01 M/mm3 (3.65-5.03) 11/21/19 07:10 Hgb 11.0 gm/dl (11.8-15.2) L 11/21/19 07:10 Hct 33.6 % (35.5-45.6) L 11/21/19 07:10 MCV 84 fl (84-94) 11/21/19 07:10 MCH 27 pg (28-32) L 11/21/19 07:10 MCHC 33 % (32-34) 11/21/19 07:10 RDW 18.3 % (13.2-15.2) H 11/21/19 07:10 Plt Count 221 K/mm3 (140-440) 11/21/19 07:10 Lymph % (Auto) 15.2 % (13.4-35.0) 11/21/19 07:10 [place] % (Auto) 12.6 % (0.0-7.3) H 11/21/19 07:10 Eos % (Auto) 1.6 % (0.0-4.3) 11/21/19 07:10 Baso % (Auto) 1.1 % (0.0-1.8) 11/21/19 07:10 Lymph # 1.1 K/mm3 (1.2-5.4) L 11/21/19 07:10 [place] # 0.9 K/mm3 (0.0-0.8) H 11/21/19 07:10 Eos # 0.1 K/mm3 (0.0-0.4) 11/21/19 07:10 Baso # 0.1 K/mm3 (0.0-0.1) 11/21/19 07:10 Seg Neutrophils % 69.5 % (40.0-70.0) 11/21/19 07:10 Seg Neutrophils # 4.9 K/mm3 (1.8-7.7) 11/21/19 07:10 Sodium 136 mmol/L (137-145) L 11/21/19 07:10 Potassium 4.9 mmol/L (3.6-5.0) 11/21/19 07:10 Chloride 97.2 mmol/L (98-107) L 11/21/19 07:10 Carbon Dioxide 29 mmol/L (22-30) 11/21/19 07:10 Anion Gap 15 mmol/L 11/21/19 07:10 BUN 32 mg/dL (9-20) H 11/21/19 07:10 Creatinine 1.0 mg/dL (0.8-1.5) 11/21/19 07:10 Estimated GFR > 60 ml/min 11/21/19 07:10 BUN/Creatinine Ratio 32 % 11/21/19 07:10 Glucose 87 mg/dL (75-100) 11/21/19 07:10 POC Glucose 88 (70-105) 11/21/19 06:34 Hemoglobin A1c 4.7 % (4-6) 11/21/19 07:10 Calcium 9.4 mg/dL (8.4-10.2) 11/21/19 07:10 Magnesium 2.30 mg/dL (1.7-2.3) 11/23/19 12:11 Total Bilirubin 0.40 mg/dL (0.1-1.2) 11/21/19 07:10 AST 25 units/L (5-40) 11/21/19 07:10 ALT 15 units/L (7-56) 11/21/19 07:10 Alkaline Phosphatase 138 units/L (35-129) H 11/21/19 07:10 Total Protein 6.9 g/dL (6.3-8.2) 11/21/19 07:10 Albumin 3.7 g/dL (3.9-5) L 11/21/19 07:10 Albumin/Globulin Ratio 1.2 % 11/21/19 07:10 Triglycerides 108 mg/dL (2-149) 11/21/19 07:10 Cholesterol 131 mg/dL (50-199) 11/21/19 07:10 LDL Cholesterol Direct 69 mg/dL (50-130) 11/21/19 07:10 HDL Cholesterol 55 mg/dL (40-59) 11/21/19 07:10 Cholesterol/HDL Ratio 2.38 % 11/21/19 07:10 TSH 8.400 mlU/mL (0.270-4.200) H 11/21/19 07:10 Free T4 0.98 ng/dL (0.76-1.46) 11/23/19 12:11 Free T3 Index 3.2 pg/mL (2.3-4.2) 11/23/19 12:11 Valproic Acid 17.2 ug/mL (50-100) L 11/27/19 09:50 Last Vital Signs Temp 97.7 F 11/27/19 22:00 Pulse 91 H 11/27/19 22:00 Resp 18 11/27/19 22:00 BP 103/76 11/27/19 22:00 Pulse Ox 98 11/27/19 22:00
[2019-11-28] MEDS: ARFORMOTEROL 15 MCG/2 ML NEBU IH SCH ×3 (09:15→20:38)
[2019-11-28] MEDS: BUDESONIDE 0.5 MG/2 ML NEBU IH SCH ×3 (09:15→20:38)
[2019-11-28] MEDS: SERTRALINE 50 MG TAB PO SCH (09:29)
[2019-11-28] MEDS: risperiDONE 1 MG TAB PO SCH ×2 (09:30→22:12)
[2019-11-28] MEDS: NICOTINE 21 MG/24 HR PATCH TD SCH (09:30)
[2019-11-28] MEDS: FUROSEMIDE 20 MG TAB PO SCH ×2 (09:30→22:13)
[2019-11-28] MEDS: DIVALPROEX DR 500 MG TAB PO SCH ×2 (09:30→22:12)
[2019-11-28] MEDS: APIXABAN 5 MG TAB PO SCH ×2 (09:30→22:12)
[2019-11-28] MEDS: SPIRONOLACTONE 50 MG TAB PO SCH (09:34)
[2019-11-28] MEDS: LOSARTAN 50 MG TAB PO SCH (09:35)
[2019-11-28] MEDS: MELATONIN 5 MG TAB PO SCH ×2 (22:13→22:23)
[2019-11-28] MEDS: traZODone 50 MG TAB PO SCH ×2 (22:14→22:24)
[2019-11-28] MEDS: ACETAMINOPHEN 325 MG TAB PO PRN (22:51)
[2019-11-29] MEDS: HYPROMELLOSE 0.5% OPHTH SOLN 15 ML OU SCH ×6 (04:02→23:24)
[2019-11-29] MEDS: LEVOTHYROXINE 50 MCG TAB PO SCH (06:25)
--- NOTE | 2019-11-29 07:13 | Progress Note ---
Subjective Date of service: 11/29/19 Principal diagnosis: Major Depressive Disorder Subjective Comment: Psych Nurse: Patient is cooperative and and pleasant. He denies S/H/I and hallucinations. He ate 100% of his meals and participated minimally in activities. Pt interact minimal with peers,cpmplioant with medications, self isolate, no acute distress noted. Will continue to monitor. PSYCH PROGRESS HPI Patient seen this AM, next to his fellow inpatient peer, says he is feeling very good this morning, denies any sleep disturbances, compliant with his medications now, no side effects or pill burden complaints. Patient denies any SI, HI or AVH. Reports eating well, and looking forward to being discharged, still mentioned needing home health services or hospice. Reason for continued inpatient treatment: Will repeat Valproate levels tomorrow, previous levels very low, patient responding to treatment with favorable psychiatric outcomes. Patient more lucid, exhibits good insight into his health issues and making reasonable needs more known thou selective with medications bt has been compliant with taking psych meds. REVIEW OF SYSTEMS Constitutional: Negative for weight loss ENT: Negative for stridor Respiratory: Negative for cough or hemoptysis All other systems reviewed and are negative MENTAL STATUS EXAMINATION General Appearance and Behavior: Age appropriate, fair hygiene, wearing appropriate clothes, good eye contact, cooperative polite with questioning. Cooperation: Participating/engaged Psychomotor Behavior: unremarkable and within normal limits Mood: feel good Affect and affective range: incongruent with mood Thought Process: Fluent/Logical Thought Content: Within reality Speech: Normal volume, Regular rate and rhythm Intellectual Functioning: Average Suicidal Ideation: denies Homicidal Ideation: Denies HI Impulse Control: Unimpaired Insight and Judgment: Normal insight and judgment Memory: Normal Attention: Normal Orientation: Alert, oriented, anxious. Assessment and Plan - Psychiatric problem (1) MDD (major depressive disorder), recurrent episode, severe Current Visit: Yes Status: Acute Continue current meds Patient will be admitted for inpatient psychiatric evaluation, medication adjustment and close monitoring The patient's behavior, mood, sleep and appetite will be closely monitored. Patient will be enrolled in individual and group therapeutic sessions and encouraged to attend. Patient will be provided with a safe and structured environment. Patient's physical health needs will be addressed by the Hospitalist. Hospitalist Consulted Labs including CBC, CMP, Lipid profile and Hemoglobin A1C ordered Social Assessment will be completed and the Forestry Crew Chief will work with patient and family to ensure a suitable and safe disposition Medication adjustment will be made as clinically indicated Usual Wellness Orthodox/Preservation: - Start Trazodone 50 mg po QHS & 50 mg po QHS PRN between 10 PM & 2 AM for insomnia - Start Melatonin 5 mg po QHS to promote circadian rhythm - Start [place]-3 for brain health, reduce impulsivity, and as adjunctive treatment for mood disorder, continue upon discharge given overall benefits. - Start B1 prophylaxis with 200 mg po for 5 days The patient agreed on the treatment plan, understood the risk, benefit, alternative treatment, potential consequence of no treatment, and gave informed consent. Initial Certification This is an acknowledgement statement that Demetrio Burnett is a 56 year old F who requires inpatient psychiatric admission for treatment which could reasonably be expected to improve the patient's condition for Estimated period of time patient will need to remain in the hospital: [1] Medications and Allergies Allergies Allergy/AdvReac Type Severity Reaction Status Date / Time lactose Allergy Unknown Verified 11/21/19 03:25 peanut Allergy Unknown Verified 11/20/19 14:04 tramadol Allergy Unknown Verified 11/21/19 03:25 Home Medications Medication Instructions Recorded Confirmed Last Taken Type Acetaminophen TAB 650 mg PO Q8H PRN 11/21/19 11/21/19 Unknown History Apixaban 5 mg PO BID 11/21/19 11/21/19 Unknown History Artificial Tears Drops 1%/0.3% 1 drop OU Q4H 11/21/19 11/21/19 Unknown History Aspirin [Adult Aspirin] 81 mg PO DAILY 11/21/19 11/21/19 Unknown History AtorvaSTATin 10 mg PO DAILY 11/21/19 11/21/19 Unknown History Budesonide-Formoterol 160-4.5 2 puff INHALATION BID 11/21/19 11/21/19 Unknown History Calcium Carbonate [Calcium 500 mg PO DAILY 11/21/19 11/21/19 Unknown History Carbonate 500MG TAB] Fluticasone/Vilanterol 1 puff INHALATION DAILY 11/21/19 11/21/19 Unknown History Furosemide [Lasix TAB] 20 mg PO BID 11/21/19 11/21/19 Unknown History Losartan 100 mg PO DAILY 11/21/19 11/21/19 Unknown History Magnesium Oxide 400 mg PO DAILY 11/21/19 11/21/19 Unknown History Pantoprazole 40 mg PO BID 11/21/19 11/21/19 Unknown History Sennosides [Senna] 8.6 mg PO BID 11/21/19 11/21/19 Unknown History Spironolactone [Aldactone] 50 mg PO QDAY 11/21/19 11/21/19 Unknown History guaiFENesin 600 mg PO Q12H 11/21/19 11/21/19 Unknown History Active Meds: Active Medications Acetaminophen (Tylenol) 650 mg PO Q8H PRN PRN Reason: Pain , Severe (7-10) Last Admin: 11/28/19 22:51 Dose: 650 mg Documented by: Apixaban (Eliquis) 5 mg PO Q12HR [facility] Last Admin: 11/28/19 22:12 Dose: 5 mg Documented by: Arformoterol Tartrate (Brovana Nebu) 15 mcg IH Q12HRT [facility] Last Admin: 11/28/19 20:38 Dose: 15 mcg Documented by: Artificial Tears (Isopto Tears 0.5%) 1 drops OU Q4H [facility] Last Admin: 11/29/19 04:02 Dose: Not Given Documented by: Atorvastatin Calcium (Atorvastatin) 10 mg PO DAILY [facility] Last Admin: 11/28/19 09:31 Dose: 10 mg Documented by: Budesonide (Pulmicort) 0.5 mg IH Q12HRT [facility] Last Admin: 11/28/19 20:38 Dose: 0.5 mg Documented by: Divalproex Sodium (Depakote Dr) 500 mg PO BID [facility] Last Admin: 11/28/19 22:12 Dose: 500 mg Documented by: Furosemide (Lasix) 20 mg PO BID [facility] Last Admin: 11/28/19 22:13 Dose: Not Given Documented by: Levothyroxine Sodium (Synthroid) 50 mcg PO DAILY@0600 [facility] Last Admin: 11/29/19 06:25 Dose: 50 mcg Documented by: Losartan Potassium (Cozaar) 100 mg PO QDAY [facility] Last Admin: 11/28/19 09:35 Dose: Not Given Documented by: Melatonin (Melatonin) 10 mg PO QHS@2100 [facility] Last Admin: 11/28/19 22:23 Dose: Not Given Documented by: Nicotine (Habitrol) 21 mg TD QDAY [facility] Last Admin: 11/28/19 09:30 Dose: 21 mg Documented by: Risperidone (Risperdal) 1 mg PO BID [facility] Last Admin: 11/28/19 22:12 Dose: 1 mg Documented by: Sertraline HCl (Zoloft) 50 mg PO QDAY [facility] Last Admin: 11/28/19 09:29 Dose: 50 mg Documented by: Spironolactone (Aldactone) 50 mg PO QDAY [facility] Last Admin: 11/28/19 09:34 Dose: Not Given Documented by: Trazodone HCl (Desyrel) 50 mg PO QHS [facility] Last Admin: 11/28/19 22:24 Dose: Not Given Documented by: Results - Results Labs/Vitals: Laboratory Last Values WBC 7.0 K/mm3 (4.5-11.0) 11/21/19 07:10 RBC 4.01 M/mm3 (3.65-5.03) 11/21/19 07:10 Hgb 11.0 gm/dl (11.8-15.2) L 11/21/19 07:10 Hct 33.6 % (35.5-45.6) L 11/21/19 07:10 MCV 84 fl (84-94) 11/21/19 07:10 MCH 27 pg (28-32) L 11/21/19 07:10 MCHC 33 % (32-34) 11/21/19 07:10 RDW 18.3 % (13.2-15.2) H 11/21/19 07:10 Plt Count 221 K/mm3 (140-440) 11/21/19 07:10 Lymph % (Auto) 15.2 % (13.4-35.0) 11/21/19 07:10 [place] % (Auto) 12.6 % (0.0-7.3) H 11/21/19 07:10 Eos % (Auto) 1.6 % (0.0-4.3) 11/21/19 07:10 Baso % (Auto) 1.1 % (0.0-1.8) 11/21/19 07:10 Lymph # 1.1 K/mm3 (1.2-5.4) L 11/21/19 07:10 [place] # 0.9 K/mm3 (0.0-0.8) H 11/21/19 07:10 Eos # 0.1 K/mm3 (0.0-0.4) 11/21/19 07:10 Baso # 0.1 K/mm3 (0.0-0.1) 11/21/19 07:10 Seg Neutrophils % 69.5 % (40.0-70.0) 11/21/19 07:10 Seg Neutrophils # 4.9 K/mm3 (1.8-7.7) 11/21/19 07:10 Sodium 136 mmol/L (137-145) L 11/21/19 07:10 Potassium 4.9 mmol/L (3.6-5.0) 11/21/19 07:10 Chloride 97.2 mmol/L (98-107) L 11/21/19 07:10 Carbon Dioxide 29 mmol/L (22-30) 11/21/19 07:10 Anion Gap 15 mmol/L 11/21/19 07:10 BUN 32 mg/dL (9-20) H 11/21/19 07:10 Creatinine 1.0 mg/dL (0.8-1.5) 11/21/19 07:10 Estimated GFR > 60 ml/min 11/21/19 07:10 BUN/Creatinine Ratio 32 % 11/21/19 07:10 Glucose 87 mg/dL (75-100) 11/21/19 07:10 POC Glucose 88 (70-105) 11/21/19 06:34 Hemoglobin A1c 4.7 % (4-6) 11/21/19 07:10 Calcium 9.4 mg/dL (8.4-10.2) 11/21/19 07:10 Magnesium 2.30 mg/dL (1.7-2.3) 11/23/19 12:11 Total Bilirubin 0.40 mg/dL (0.1-1.2) 11/21/19 07:10 AST 25 units/L (5-40) 11/21/19 07:10 ALT 15 units/L (7-56) 11/21/19 07:10 Alkaline Phosphatase 138 units/L (35-129) H 11/21/19 07:10 Total Protein 6.9 g/dL (6.3-8.2) 11/21/19 07:10 Albumin 3.7 g/dL (3.9-5) L 11/21/19 07:10 Albumin/Globulin Ratio 1.2 % 11/21/19 07:10 Triglycerides 108 mg/dL (2-149) 11/21/19 07:10 Cholesterol 131 mg/dL (50-199) 11/21/19 07:10 LDL Cholesterol Direct 69 mg/dL (50-130) 11/21/19 07:10 HDL Cholesterol 55 mg/dL (40-59) 11/21/19 07:10 Cholesterol/HDL Ratio 2.38 % 11/21/19 07:10 TSH 8.400 mlU/mL (0.270-4.200) H 11/21/19 07:10 Free T4 0.98 ng/dL (0.76-1.46) 11/23/19 12:11 Free T3 Index 3.2 pg/mL (2.3-4.2) 11/23/19 12:11 Valproic Acid 17.2 ug/mL (50-100) L 11/27/19 09:50 Last Vital Signs Temp 97.7 F 11/28/19 22:00 Pulse 73 11/28/19 22:00 Resp 16 11/28/19 22:51 BP 116/66 11/28/19 19:02 Pulse Ox 97 11/28/19 22:00
[2019-11-29] MEDS: ARFORMOTEROL 15 MCG/2 ML NEBU IH SCH ×2 (09:30→20:08)
[2019-11-29] MEDS: BUDESONIDE 0.5 MG/2 ML NEBU IH SCH ×2 (09:30→20:08)
[2019-11-29] MEDS: NICOTINE 21 MG/24 HR PATCH TD SCH (09:58)
[2019-11-29] MEDS: FUROSEMIDE 20 MG TAB PO SCH ×2 (09:58→21:43)
[2019-11-29] MEDS: DIVALPROEX DR 500 MG TAB PO SCH ×2 (09:58→21:43)
[2019-11-29] MEDS: APIXABAN 5 MG TAB PO SCH ×2 (09:58→21:43)
[2019-11-29] MEDS: SERTRALINE 50 MG TAB PO SCH (09:58)
[2019-11-29] MEDS: SPIRONOLACTONE 50 MG TAB PO SCH (10:00)
[2019-11-29] MEDS: LOSARTAN 50 MG TAB PO SCH (10:03)
[2019-11-29] MEDS: ACETAMINOPHEN 325 MG TAB PO PRN (18:54)
[2019-11-29] MEDS: MELATONIN 5 MG TAB PO SCH (21:44)
[2019-11-29] MEDS: traZODone 50 MG TAB PO SCH (21:44)
[2019-11-30] MEDS: HYPROMELLOSE 0.5% OPHTH SOLN 15 ML OU SCH ×4 (05:50→20:42)
[2019-11-30] MEDS: LEVOTHYROXINE 50 MCG TAB PO SCH (05:51)
--- NOTE | 2019-11-30 07:14 | Progress Note ---
Subjective Date of service: 11/30/19 Principal diagnosis: Major Depressive Disorder Subjective Comment: Psych Nurse: Patient spent the evening watching tv and interacting with his peers. He had appropriate interactions. He smiles often and says he feels ready to go home. He still focuses on the number of pills he takes but not as much as when arrived. He was medication compliant. He denies si/hi/ah/vh. Patient rested quietly throughout the night. He slept 9 hours. Will continue to monitor patient for safety. PSYCH PROGRESS HPI Patient seen this AM, reports sleeping good, says his just alright but denies a depressed mood. Asked about his request for home services prior to discharge. Patient denies SI, HI Reason for continued inpatient treatment: Valproic levels came back low but incresed from previous pt had dose adjustment already and expecting increased serum levels over next couple of days. Patient responding to treatment with favorable psychiatric outcomes. Patient more lucid, exhibits good insight into his health issues and making reasonable needs more known thou selective with medications bt has been compliant with taking psych meds. REVIEW OF SYSTEMS Constitutional: Negative for weight loss ENT: Negative for stridor Respiratory: Negative for cough or hemoptysis All other systems reviewed and are negative MENTAL STATUS EXAMINATION General Appearance and Behavior: Age appropriate, fair hygiene, wearing appropriate clothes, good eye contact, cooperative polite with questioning. Cooperation: Participating/engaged Psychomotor Behavior: unremarkable and within normal limits Mood: feel good Affect and affective range: incongruent with mood Thought Process: Fluent/Logical Thought Content: Within reality Speech: Normal volume, Regular rate and rhythm Intellectual Functioning: Average Suicidal Ideation: denies Homicidal Ideation: Denies HI Impulse Control: Unimpaired Insight and Judgment: Normal insight and judgment Memory: Normal Attention: Normal Orientation: Alert, oriented, anxious. Assessment and Plan - Psychiatric problem (1) MDD (major depressive disorder), recurrent episode, severe Current Visit: Yes Status: Acute Continue current meds Patient will be admitted for inpatient psychiatric evaluation, medication adjustment and close monitoring The patient's behavior, mood, sleep and appetite will be closely monitored. Patient will be enrolled in individual and group therapeutic sessions and e ncouraged to attend. Patient will be provided with a safe and structured environment. Patient's physical health needs will be addressed by the Hospitalist. Hospitalist Consulted Labs including CBC, CMP, Lipid profile and Hemoglobin A1C ordered Social Assessment will be completed and the Anesthesiology Physician will work with patient and family to ensure a suitable and safe disposition Medication adjustment will be made as clinically indicated Usual Wellness Restorationism/Preservation: - Start Trazodone 50 mg po QHS & 50 mg po QHS PRN between 10 PM & 2 AM for insomnia - Start Melatonin 5 mg po QHS to promote circadian rhythm - Start [place]-3 for brain health, reduce impulsivity, and as adjunctive treatment for mood disorder, continue upon discharge given overall benefits. - Start B1 prophylaxis with 200 mg po for 5 days The patient agreed on the treatment plan, understood the risk, benefit, alternative treatment, potential consequence of no treatment, and gave informed consent. Initial Certification This is an acknowledgement statement that Demetrio Burnett is a 56 year old F who requires inpatient psychiatric admission for treatment which could reasonably be expected to improve the patient's condition for Estimated period of time patient will need to remain in the hospital: [0] Medications and Allergies Allergies Allergy/AdvReac Type Severity Reaction Status Date / Time lactose Allergy Unknown Verified 11/21/19 03:25 peanut Allergy Unknown Verified 11/20/19 14:04 tramadol Allergy Unknown Verified 11/21/19 03:25 Home Medications Medication Instructions Recorded Confirmed Last Taken Type Acetaminophen TAB 650 mg PO Q8H PRN 11/21/19 11/21/19 Unknown History Apixaban 5 mg PO BID 11/21/19 11/21/19 Unknown History Artificial Tears Drops 1%/0.3% 1 drop OU Q4H 11/21/19 11/21/19 Unknown History Aspirin [Adult Aspirin] 81 mg PO DAILY 11/21/19 11/21/19 Unknown History AtorvaSTATin 10 mg PO DAILY 11/21/19 11/21/19 Unknown History Budesonide-Formoterol 160-4.5 2 puff INHALATION BID 11/21/19 11/21/19 Unknown History Calcium Carbonate [Calcium 500 mg PO DAILY 11/21/19 11/21/19 Unknown History Carbonate 500MG TAB] Fluticasone/Vilanterol 1 puff INHALATION DAILY 11/21/19 11/21/19 Unknown History Furosemide [Lasix TAB] 20 mg PO BID 11/21/19 11/21/19 Unknown History Losartan 100 mg PO DAILY 11/21/19 11/21/19 Unknown History Magnesium Oxide 400 mg PO DAILY 11/21/19 11/21/19 Unknown History Pantoprazole 40 mg PO BID 11/21/19 11/21/19 Unknown History Sennosides [Senna] 8.6 mg PO BID 11/21/19 11/21/19 Unknown History Spironolactone [Aldactone] 50 mg PO QDAY 11/21/19 11/21/19 Unknown History guaiFENesin 600 mg PO Q12H 11/21/19 11/21/19 Unknown History Active Meds: Active Medications Acetaminophen (Tylenol) 650 mg PO Q8H PRN PRN Reason: Pain , Severe (7-10) Last Admin: 11/29/19 18:54 Dose: 650 mg Documented by: Apixaban (Eliquis) 5 mg PO Q12HR [facility] Last Admin: 11/29/19 21:43 Dose: 5 mg Documented by: Arformoterol Tartrate (Brovana Nebu) 15 mcg IH Q12HRT [facility] Last Admin: 11/29/19 20:08 Dose: 15 mcg Documented by: Artificial Tears (Isopto Tears 0.5%) 1 drops OU Q4H [facility] Last Admin: 11/30/19 05:50 Dose: Not Given Documented by: Atorvastatin Calcium (Atorvastatin) 10 mg PO DAILY [facility] Last Admin: 11/29/19 09:58 Dose: 10 mg Documented by: Budesonide (Pulmicort) 0.5 mg IH Q12HRT [facility] Last Admin: 11/29/19 20:08 Dose: 0.5 mg Documented by: Divalproex Sodium (Depakote Dr) 500 mg PO BID [facility] Last Admin: 11/29/19 21:43 Dose: 500 mg Documented by: Furosemide (Lasix) 20 mg PO BID [facility] Last Admin: 11/29/19 21:43 Dose: 20 mg Documented by: Levothyroxine Sodium (Synthroid) 50 mcg PO DAILY@0600 [facility] Last Admin: 11/30/19 05:51 Dose: 50 mcg Documented by: Losartan Potassium (Cozaar) 100 mg PO QDAY [facility] Last Admin: 11/29/19 10:03 Dose: Not Given Documented by: Melatonin (Melatonin) 10 mg PO QHS@2100 [facility] Last Admin: 11/29/19 21:44 Dose: 10 mg Documented by: Nicotine (Habitrol) 21 mg TD QDAY [facility] Last Admin: 11/29/19 09:58 Dose: 21 mg Documented by: Olanzapine (Zyprexa) 5 mg PO QHS [facility] Last Admin: 11/29/19 21:43 Dose: 5 mg Documented by: Sertraline HCl (Zoloft) 50 mg PO QDAY [facility] Last Admin: 11/29/19 09:58 Dose: 50 mg Documented by: Spironolactone (Aldactone) 50 mg PO QDAY [facility] Last Admin: 11/29/19 10:00 Dose: 50 mg Documented by: Trazodone HCl (Desyrel) 50 mg PO QHS [facility] Last Admin: 11/29/19 21:44 Dose: 50 mg Documented by: Results - Results Labs/Vitals: Laboratory Last Values WBC 7.0 K/mm3 (4.5-11.0) 11/21/19 07:10 RBC 4.01 M/mm3 (3.65-5.03) 11/21/19 07:10 Hgb 11.0 gm/dl (11.8-15.2) L 11/21/19 07:10 Hct 33.6 % (35.5-45.6) L 11/21/19 07:10 MCV 84 fl (84-94) 11/21/19 07:10 MCH 27 pg (28-32) L 11/21/19 07:10 MCHC 33 % (32-34) 11/21/19 07:10 RDW 18.3 % (13.2-15.2) H 11/21/19 07:10 Plt Count 221 K/mm3 (140-440) 11/21/19 07:10 Lymph % (Auto) 15.2 % (13.4-35.0) 11/21/19 07:10 [place] % (Auto) 12.6 % (0.0-7.3) H 11/21/19 07:10 Eos % (Auto) 1.6 % (0.0-4.3) 11/21/19 07:10 Baso % (Auto) 1.1 % (0.0-1.8) 11/21/19 07:10 Lymph # 1.1 K/mm3 (1.2-5.4) L 11/21/19 07:10 [place] # 0.9 K/mm3 (0.0-0.8) H 11/21/19 07:10 Eos # 0.1 K/mm3 (0.0-0.4) 11/21/19 07:10 Baso # 0.1 K/mm3 (0.0-0.1) 11/21/19 07:10 Seg Neutrophils % 69.5 % (40.0-70.0) 11/21/19 07:10 Seg Neutrophils # 4.9 K/mm3 (1.8-7.7) 11/21/19 07:10 Sodium 136 mmol/L (137-145) L 11/21/19 07:10 Potassium 4.9 mmol/L (3.6-5.0) 11/21/19 07:10 Chloride 97.2 mmol/L (98-107) L 11/21/19 07:10 Carbon Dioxide 29 mmol/L (22-30) 11/21/19 07:10 Anion Gap 15 mmol/L 11/21/19 07:10 BUN 32 mg/dL (9-20) H 11/21/19 07:10 Creatinine 1.0 mg/dL (0.8-1.5) 11/21/19 07:10 Estimated GFR > 60 ml/min 11/21/19 07:10 BUN/Creatinine Ratio 32 % 11/21/19 07:10 Glucose 87 mg/dL (75-100) 11/21/19 07:10 POC Glucose 88 (70-105) 11/21/19 06:34 Hemoglobin A1c 4.7 % (4-6) 11/21/19 07:10 Calcium 9.4 mg/dL (8.4-10.2) 11/21/19 07:10 Magnesium 2.30 mg/dL (1.7-2.3) 11/23/19 12:11 Total Bilirubin 0.40 mg/dL (0.1-1.2) 11/21/19 07:10 AST 25 units/L (5-40) 11/21/19 07:10 ALT 15 units/L (7-56) 11/21/19 07:10 Alkaline Phosphatase 138 units/L (35-129) H 11/21/19 07:10 Total Protein 6.9 g/dL (6.3-8.2) 11/21/19 07:10 Albumin 3.7 g/dL (3.9-5) L 11/21/19 07:10 Albumin/Globulin Ratio 1.2 % 11/21/19 07:10 Triglycerides 108 mg/dL (2-149) 11/21/19 07:10 Cholesterol 131 mg/dL (50-199) 11/21/19 07:10 LDL Cholesterol Direct 69 mg/dL (50-130) 11/21/19 07:10 HDL Cholesterol 55 mg/dL (40-59) 11/21/19 07:10 Cholesterol/HDL Ratio 2.38 % 11/21/19 07:10 TSH 8.400 mlU/mL (0.270-4.200) H 11/21/19 07:10 Free T4 0.98 ng/dL (0.76-1.46) 11/23/19 12:11 Free T3 Index 3.2 pg/mL (2.3-4.2) 11/23/19 12:11 Valproic Acid 17.2 ug/mL (50-100) L 11/27/19 09:50 Last Vital Signs Temp 97.4 F L 11/29/19 19:17 Pulse 88 11/29/19 20:08 Resp 18 11/29/19 20:08 BP 120/79 11/29/19 19:17 Pulse Ox 99 11/29/19 19:17
[2019-11-30] MEDS: BUDESONIDE 0.5 MG/2 ML NEBU IH SCH (10:43)
[2019-11-30] MEDS: ARFORMOTEROL 15 MCG/2 ML NEBU IH SCH (10:44)
[2019-11-30] MEDS: LOSARTAN 50 MG TAB PO SCH (11:08)
[2019-11-30] MEDS: DIVALPROEX DR 500 MG TAB PO SCH ×2 (11:08→21:11)
[2019-11-30] MEDS: NICOTINE 21 MG/24 HR PATCH TD SCH (11:09)
[2019-11-30] MEDS: FUROSEMIDE 20 MG TAB PO SCH ×2 (11:09→21:11)
[2019-11-30] MEDS: APIXABAN 5 MG TAB PO SCH ×2 (11:09→21:11)
[2019-11-30] MEDS: SPIRONOLACTONE 50 MG TAB PO SCH (11:09)
[2019-11-30 11:12] VITALS: BP 128/82
[2019-11-30] MEDS: SERTRALINE 50 MG TAB PO SCH (11:17)
--- NOTE | 2019-11-30 17:17 | Discharge Summary ---
Providers - Providers Date of Admission: 11/21/19 00:04 Date of discharge: 11/30/19 Attending physician: IMANI FRANKLIN MD 11/20/19 14:05 Consult to Physician [CONS] Routine Comment: Consulting Provider: GUILLERMO SCUHLTE Physician Instructions: Reason For Exam: manage medical conditions Primary care physician: SPONGE CLIPPER Hospitalization Reason for admission: Danger to self, Severe anxiety/depression Condition: Good Hospital course: The patient was provided inpatient psychiatric treatment with safe and supportive care, medication adjustment, adverse effect monitoring, medical evaluations, medical treatments, assessment and psycho-education. The patient's mood, cognition, behavior, moral support are improved and stabilized. St the time of discharge, the patient had no endangering behavior and no debilitating adverse effects. The patient agreed on potential consequences of no treatment and gave informed consent. Disposition: DC- TO HOME OR SELFCARE Allergies/Adverse Reactions: Allergies lactose Allergy (Verified 11/21/19 03:25) Unknown peanut Allergy (Verified 11/20/19 14:04) Unknown tramadol Allergy (Verified 11/21/19 03:25) Unknown Vital Signs: Last Vital Signs Temp 97.4 F L 11/29/19 19:17 Pulse 68 11/30/19 11:09 Resp 18 11/29/19 20:08 BP 128/82 11/30/19 11:09 Pulse Ox 99 11/29/19 19:17 Last Lab: Laboratory Last Values WBC 7.0 K/mm3 (4.5-11.0) 11/21/19 07:10 RBC 4.01 M/mm3 (3.65-5.03) 11/21/19 07:10 Hgb 11.0 gm/dl (11.8-15.2) L 11/21/19 07:10 Hct 33.6 % (35.5-45.6) L 11/21/19 07:10 MCV 84 fl (84-94) 11/21/19 07:10 MCH 27 pg (28-32) L 11/21/19 07:10 MCHC 33 % (32-34) 11/21/19 07:10 RDW 18.3 % (13.2-15.2) H 11/21/19 07:10 Plt Count 221 K/mm3 (140-440) 11/21/19 07:10 Lymph % (Auto) 15.2 % (13.4-35.0) 11/21/19 07:10 [place] % (Auto) 12.6 % (0.0-7.3) H 11/21/19 07:10 Eos % (Auto) 1.6 % (0.0-4.3) 11/21/19 07:10 Baso % (Auto) 1.1 % (0.0-1.8) 11/21/19 07:10 Lymph # 1.1 K/mm3 (1.2-5.4) L 11/21/19 07:10 [place] # 0.9 K/mm3 (0.0-0.8) H 11/21/19 07:10 Eos # 0.1 K/mm3 (0.0-0.4) 11/21/19 07:10 Baso # 0.1 K/mm3 (0.0-0.1) 11/21/19 07:10 Seg Neutrophils % 69.5 % (40.0-70.0) 11/21/19 07:10 Seg Neutrophils # 4.9 K/mm3 (1.8-7.7) 11/21/19 07:10 Sodium 136 mmol/L (137-145) L 11/21/19 07:10 Potassium 4.9 mmol/L (3.6-5.0) 11/21/19 07:10 Chloride 97.2 mmol/L (98-107) L 11/21/19 07:10 Carbon Dioxide 29 mmol/L (22-30) 11/21/19 07:10 Anion Gap 15 mmol/L 11/21/19 07:10 BUN 32 mg/dL (9-20) H 11/21/19 07:10 Creatinine 1.0 mg/dL (0.8-1.5) 11/21/19 07:10 Estimated GFR > 60 ml/min 11/21/19 07:10 BUN/Creatinine Ratio 32 % 11/21/19 07:10 Glucose 87 mg/dL (75-100) 11/21/19 07:10 POC Glucose 88 (70-105) 11/21/19 06:34 Hemoglobin A1c 4.7 % (4-6) 11/21/19 07:10 Calcium 9.4 mg/dL (8.4-10.2) 11/21/19 07:10 Magnesium 2.30 mg/dL (1.7-2.3) 11/23/19 12:11 Total Bilirubin 0.40 mg/dL (0.1-1.2) 11/21/19 07:10 AST 25 units/L (5-40) 11/21/19 07:10 ALT 15 units/L (7-56) 11/21/19 07:10 Alkaline Phosphatase 138 units/L (35-129) H 11/21/19 07:10 Total Protein 6.9 g/dL (6.3-8.2) 11/21/19 07:10 Albumin 3.7 g/dL (3.9-5) L 11/21/19 07:10 Albumin/Globulin Ratio 1.2 % 11/21/19 07:10 Triglycerides 108 mg/dL (2-149) 11/21/19 07:10 Cholesterol 131 mg/dL (50-199) 11/21/19 07:10 LDL Cholesterol Direct 69 mg/dL (50-130) 11/21/19 07:10 HDL Cholesterol 55 mg/dL (40-59) 11/21/19 07:10 Cholesterol/HDL Ratio 2.38 % 11/21/19 07:10 TSH 8.400 mlU/mL (0.270-4.200) H 11/21/19 07:10 Free T4 0.98 ng/dL (0.76-1.46) 11/23/19 12:11 Free T3 Index 3.2 pg/mL (2.3-4.2) 11/23/19 12:11 Valproic Acid 32.6 ug/mL (50-100) L 11/30/19 08:00 Core Measure Documentation - Palliative Care Palliative Care/ Comfort Measures: Not Applicable - Core Measures Any of the following diagnoses?: none Exam - Constitutional Vitals: Temp Pulse Resp BP Pulse Ox 97.4 F L 68 18 128/82 99 11/29/19 19:17 11/30/19 11:09 11/29/19 20:08 11/30/19 11:09 11/29/19 19:17 - EENT Eyes: Present: PERRL, EOM intact ENT: hearing intact, clear oral mucosa - Neck Neck: Present: supple, normal ROM - Respiratory Respiratory effort: normal - Abdominal Male genitourinary: Present: normal - Integumentary Integumentary: Present: clear, warm, dry Plan Care Plan Goals: Take medications as prescribed Plan of Treatment: F/U with PCP and outpt counselling Health Concerns: None at time of charge Follow up with: PRIMARY CARE,MD [Primary Care Provider] - 7 Days Prescriptions: traZODone [Desyrel] 50 mg PO QHS #30 tablet OLANzapine [ZyPREXA] 5 mg PO QHS #30 tablet Levothyroxine [Synthroid] 50 mcg PO DAILY@0600 #30 tablet Sertraline [Zoloft] 50 mg PO QDAY #30 tablet
[2019-11-30] MEDS: traZODone 50 MG TAB PO SCH (21:10)
[2019-11-30] MEDS: MELATONIN 5 MG TAB PO SCH (21:11)
[2019-11-30] MEDS: ACETAMINOPHEN 325 MG TAB PO PRN (21:42)
== END 2019-11-30 21:50 | disposition home or self-care (01) | DRG 885 ==
LOC: UNDOADMIN 11:06 → 3A 11:06 → 5A 11-21 00:04
PROVIDERS: ADMIT Psychiatry & Neurology Psychiatry; ATTEND Psychiatry & Neurology Psychiatry
DX: F33.2 Major depressive disorder, recurrent severe without psychotic features (principal); F41.8 Other specified anxiety disorders; I48.91 Unspecified atrial fibrillation; Z79.01 Long term (current) use of anticoagulants; E78.5 Hyperlipidemia, unspecified; K21.9 Gastro-esophageal reflux disease without esophagitis; E03.9 Hypothyroidism, unspecified; I50.9 Heart failure, unspecified; I11.0 Hypertensive heart disease with heart failure; J44.9 Chronic obstructive pulmonary disease, unspecified; Z87.01 Personal history of pneumonia (recurrent); Z91.011 Allergy to milk products; Z91.010 Allergy to peanuts; Z88.6 Allergy status to analgesic agent
CPT/HCPCS: 36415; 80053; 80061; 80164; 82962; 83036; 83735; 84439; 84443; 84481; 85025; 94640; G0378; A9270-GY